=== PATIENT | male | born 1945 | race Caucasian/White ===

== ENCOUNTER 2017-09-06 23:14 | Emergency (ER) | payer MEDICARE ==
[~2017-09-06] VITALS: Ht 180.3 cm; Wt 91.6 kg
[~2017-09-06 23:14] MED LIST: ACET325 PO; ALBIPROI INH; ALBU.083IS IH; ALBU.083IS INH; ALBU90OI61 INH; AMOCLA875 PO; ASPI325EC PO; ATOR10 PO; ATOR80 PO; Advil200 M1 PO; CEFU250 PO; CEPH500 PO; CIPR500 PO; CLON.1 PO; CLOP75 PO; CODGUAEL PO; CYCL10; CYCL10 PO; Cardura Xl8 MG PO; DIAZ5 PO; DILT240 PO; DIPATR PO; DOC250 PO; DOCU100 PO; DOXA2 PO; DOXA4 PO; ENABLEX PO; FAMO20 PO; FLEC50 PO; FLUSAL1005 IH; FLUSAL2505 IH; FURO20 PO; GABA300 PO; GABA300T24; GRALISE600 MG PO; HYDACE5 PO; HYDACE5325 PO; HYDCHL25; HYDCHL25 PO; HYDMOR2 PO; HYDMOR4 PO; HYDR-86; HYDR-86 PO; HYDR1TAB94 PO; IBUP400 PO; LEVFLO500 PO; LISI5 PO; LORA1 PO; MELA3 PO; METH10 PO; METHADONE; METO10 PO; METO25 PO; METO50 PO; METO50ER PO; METR500 PO; METRIBP PO; MOM PO; MORP60ER PO; NADO40; NIFE30ER; NITR100CA PO; Norvasc5 MG PO; OMEP20ER; OMEP20ER PO; ONDA4ODT MM; OXYACE7.5T PO; OXYC30 PO; OXYC30ER PO; OXYC40ER PO; OXYC5; OXYC5 PO; OXYC80ER PO; Omeprazole20 M1; Omeprazole20 M1 PO; PHENA100 PO; POTA10T PO; POTCHL10ER PO; PRED10 PO; PRED20 PO; PRED5 PO; PROCODE120 PO; PROM25 PO; Percocet 10-321 EACH PO; RXCODGUASY PO; RXHYDACE PO; RXLORA1 PO; RXPROM25 PO; SIMV10 PO; STOOL SOFTNER; SUCR1 PO; SULTRIDS PO; SULTRISS PO; TAMS.4ER; TAMS.4ER PO; Tylenol325 MG PO; WARF5 PO; ZOLP5 PO; Zofran Odt4 MG SL; [UNRECOGNIZED DRUG - OTHER] TOP
[2017-09-06] MEDS ORDERED: [UNRECOGNIZED DRUG - OTHER] PO (23:30)
[2017-09-06 23:51] LABS: BASOPHILS ABSOLUTE AUTO 0.05 K/mm3 (0.00-0.23); BASOPHILS PERCENT AUTO 1 % (0-2); EOSINOPHILS ABSOLUTE AUTO 0.11 K/mm3 (0.00-0.68); EOSINOPHILS PERCENT AUTO 1 % (0-6); Hematocrit 40.5 % (37.0-53.0); Hemoglobin 13.2 g/dL (13.5-17.5); IMMATURE GRAN ABSOLUTE AUTO 0.02 K/mm3 (0.00-0.10); IMMATURE GRAN PERCENT AUTO 0 % (0-1); LYMPHOCYTES ABSOLUTE AUTO 1.71 K/mm3 (0.84-5.20); LYMPHOCYTES PERCENT AUTO 21 % (21-46); MONOCYTES ABSOLUTE AUTO 0.69 K/mm3 (0.16-1.47); MONOCYTES PERCENT AUTO 8 % (4-13); Mean Corpuscular HGB 30.9 pg (26.0-34.0); Mean Corpuscular HGB Conc 32.6 g/dL (31.5-36.5); Mean Corpuscular Volume 95 fL (80-100); Mean Platelet Volume 9.8 fL (9.1-12.4); NEUTROPHILS ABSOLUTE AUTO 5.71 K/mm3 (1.96-9.15); NEUTROPHILS PERCENT AUTO 69 % (41-73); NRBC ABSOLUTE 0.02 K/mm3 (0.00-0.02); NRBC Auto 0.2 /100 WBC (0.0-0.2); Platelet Count 217 K/mm3 (150-400); RDW Coefficient Variation 13.4 % (11.7-14.2); RDW Standard Deviation 46.6 fL (35.1-46.3); Red Blood Cell Count 4.27 M/mm3 (4.30-5.90); White Blood Cell Count 8.29 K/mm3 (4.00-11.30)
[2017-09-07 00:09] LABS: Alanine Aminotransfer (ALT/SGP 20 U/L (12-78); Albumin, Blood 3.8 g/dL (3.4-5.0); Albumin/Globulin Ratio 1.2 (0.8-1.8); Alk Phos 69 U/L (50-136); Anion Gap 8 mmol/L (6-16); Aspartate Aminotrans (AST/SGOT 16 U/L (12-37); Bilirubin, Total 0.4 mg/dL (0.1-1.0); Blood Urea Nitrogen 16 mg/dL (8-24); Bun/Creatinine Ratio 16.7 (12.0-20.0); CO2, Blood 28 mmol/L (21-32); Calcium, Blood 8.7 mg/dL (8.5-10.1); Chloride, Blood 103 mmol/L (98-108); Creatinine, Blood 0.96 mg/dL (0.60-1.20); Globulin, Blood 3.2 g/dL (2.2-4.0); Glomerular Filtration Rate >60 (60-); Glucose, Blood 99 mg/dL (70-99); Potassium, Blood 4.1 mmol/L (3.5-5.5); Sodium, Blood 139 mmol/L (136-145); Troponin I <0.015 ng/mL (0.000-0.040)
[2017-09-21] MEDS ORDERED: HYDR1TAB94 PO ×2 (01:26→01:31)
[2017-09-24] MEDS ORDERED: BENZ100A PO (10:54)
[2017-09-24] MEDS ORDERED: PRED20 PO (11:00)
[2018-03-21] MEDS ORDERED: PRED10 PO (15:19)
[2018-03-21] MEDS ORDERED: NITR.6SL SL (15:19)
[2018-03-21] MEDS ORDERED: SUCR1 PO (15:20)
[2018-03-21] MEDS ORDERED: DOXA4 PO (15:20)
[2018-03-21] MEDS ORDERED: Norco 10-325 T1 EACH PO (15:20)
[2018-03-21] MEDS ORDERED: CYCL10 PO (15:21)
[2018-03-22] MEDS ORDERED: Thera Tears1 EACH BOTHEYES (06:48)
[2018-03-22] MEDS ORDERED: PAIN RELIEVING TD (06:49)
[2018-03-22] MEDS ORDERED: METO50 PO (09:30)
== END 2017-09-07 03:38 | disposition home or self-care (01) ==
LOC: ER 23:14
PROVIDERS: Emergency Medicine
DX: R07.9 Chest pain, unspecified (principal); Z79.899 Other long term (current) drug therapy; Z79.82 Long term (current) use of aspirin; Z79.52 Long term (current) use of systemic steroids; I50.9 Heart failure, unspecified
CPT/HCPCS: 36415; 71046; 80053; 83690; 84484; 85025; 93005; 93010; 99283; J7030

== ENCOUNTER 2017-09-20 21:43 | Inpatient (IN) | END 2017-09-24 11:25 | disposition home or self-care (01) | DRG 196 ==

== ENCOUNTER 2018-03-12 21:39 | Emergency (ER) | payer MEDICARE ==
[~2018-03-12] VITALS: Ht 180.3 cm; Wt 88.5 kg
[~2018-03-12 21:39] MED LIST changes: +BENZ100A PO; +[UNRECOGNIZED DRUG - OTHER] PO
[2018-03-12] MEDS ORDERED: LISI5 PO (22:23)
[2018-03-12] MEDS ORDERED: PRED10 PO (22:24)
[2018-03-12] MEDS ORDERED: Cardura8 MG PO (22:24)
[2018-03-12 22:56] LABS: BASOPHILS ABSOLUTE AUTO 0.03 K/mm3 (0.00-0.23); BASOPHILS PERCENT AUTO 0 % (0-2); EOSINOPHILS PERCENT AUTO 1 % (0-6); Hematocrit 37.5 % (37.0-53.0); Hemoglobin 12.3 g/dL (13.5-17.5); IMMATURE GRAN ABSOLUTE AUTO 0.02 K/mm3 (0.00-0.10); IMMATURE GRAN PERCENT AUTO 0 % (0-1); LYMPHOCYTES ABSOLUTE AUTO 1.76 K/mm3 (0.84-5.20); LYMPHOCYTES PERCENT AUTO 21 % (21-46); MONOCYTES ABSOLUTE AUTO 0.61 K/mm3 (0.16-1.47); MONOCYTES PERCENT AUTO 7 % (4-13); Mean Corpuscular HGB 31.6 pg (26.0-34.0); Mean Corpuscular HGB Conc 32.8 g/dL (31.5-36.5); Mean Corpuscular Volume 96 fL (80-100); Mean Platelet Volume 9.9 fL (9.1-12.4); NEUTROPHILS ABSOLUTE AUTO 5.72 K/mm3 (1.96-9.15); NEUTROPHILS PERCENT AUTO 69 % (41-73); Platelet Count 181 K/mm3 (150-400); RDW Coefficient Variation 13.2 % (11.7-14.2); RDW Standard Deviation 46.7 fL (35.1-46.3); Red Blood Cell Count 3.89 M/mm3 (4.30-5.90); White Blood Cell Count 8.24 K/mm3 (4.00-11.30)
[2018-03-12 23:15] LABS: Alanine Aminotransfer (ALT/SGP 17 U/L (12-78); Albumin, Blood 3.6 g/dL (3.4-5.0); Albumin/Globulin Ratio 1.3 (0.8-1.8); Alk Phos 46 U/L (50-136); Anion Gap 10 mmol/L (6-16); Aspartate Aminotrans (AST/SGOT 12 U/L (12-37); Bilirubin, Total 0.4 mg/dL (0.1-1.0); Blood Urea Nitrogen 18 mg/dL (8-24); Bun/Creatinine Ratio 17.5 (12.0-20.0); CO2, Blood 26 mmol/L (21-32); Calcium, Blood 8.3 mg/dL (8.5-10.1); Chloride, Blood 108 mmol/L (98-108); Creatinine, Blood 1.03 mg/dL (0.60-1.20); Globulin, Blood 2.7 g/dL (2.2-4.0); Glomerular Filtration Rate >60 (60-); Glucose, Blood 88 mg/dL (70-99); Potassium, Blood 3.7 mmol/L (3.5-5.5); Sodium, Blood 144 mmol/L (136-145); Total Protein, Blood 6.3 g/dL (6.4-8.2); Troponin I <0.015 ng/mL (0.000-0.040)
[2018-03-13] MEDS ORDERED: LIVALO4 MG PO (17:37)
[2018-03-13] MEDS ORDERED: Doxazosin Mesyla8 MG PO (17:37)
== END 2018-03-13 00:30 | disposition home or self-care (01) ==
LOC: ER 21:39
PROVIDERS: Emergency Medicine
DX: I50.9 Heart failure, unspecified (principal); J98.01 Acute bronchospasm; Z79.899 Other long term (current) drug therapy; Z79.82 Long term (current) use of aspirin; Z79.52 Long term (current) use of systemic steroids; Z79.01 Long term (current) use of anticoagulants
CPT/HCPCS: 36415; 71046; 80053; 83880; 84484; 85025; 93005; 93010; 94640; 96374; 99285-25; J2930

== ENCOUNTER 2018-03-13 16:11 | Emergency (ER) | payer MEDICARE ==
[~2018-03-13] VITALS: Ht 180.3 cm; Wt 88.5 kg
[~2018-03-13 16:11] MED LIST changes: +Cardura8 MG PO
[2018-03-13 16:58] LABS: BASOPHILS PERCENT AUTO 0 % (0-2); EOSINOPHILS PERCENT AUTO 0 % (0-6); Hematocrit 39.8 % (37.0-53.0); Hemoglobin 13.2 g/dL (13.5-17.5); IMMATURE GRAN ABSOLUTE AUTO 0.04 K/mm3 (0.00-0.10); IMMATURE GRAN PERCENT AUTO 1 % (0-1); LYMPHOCYTES ABSOLUTE AUTO 0.54 K/mm3 (0.84-5.20); LYMPHOCYTES PERCENT AUTO 7 % (21-46); MONOCYTES ABSOLUTE AUTO 0.24 K/mm3 (0.16-1.47); MONOCYTES PERCENT AUTO 3 % (4-13); Mean Corpuscular HGB 30.6 pg (26.0-34.0); Mean Corpuscular HGB Conc 33.2 g/dL (31.5-36.5); Mean Platelet Volume 10.2 fL (9.1-12.4); NEUTROPHILS ABSOLUTE AUTO 7.03 K/mm3 (1.96-9.15); NEUTROPHILS PERCENT AUTO 90 % (41-73); Platelet Count 207 K/mm3 (150-400); RDW Coefficient Variation 13.2 % (11.7-14.2); RDW Standard Deviation 44.7 fL (35.1-46.3); Red Blood Cell Count 4.32 M/mm3 (4.30-5.90); White Blood Cell Count 7.85 K/mm3 (4.00-11.30)
[2018-03-13 17:04] LABS: Mean Corpuscular Volume 92 fL (80-100)
[2018-03-13 17:28] LABS: Alanine Aminotransfer (ALT/SGP 20 U/L (12-78); Albumin, Blood 4.1 g/dL (3.4-5.0); Albumin/Globulin Ratio 1.4 (0.8-1.8); Alk Phos 48 U/L (50-136); Anion Gap 11 mmol/L (6-16); Aspartate Aminotrans (AST/SGOT 13 U/L (12-37); Bilirubin, Total 0.9 mg/dL (0.1-1.0); Blood Urea Nitrogen 20 mg/dL (8-24); Bun/Creatinine Ratio 23.3 (12.0-20.0); CO2, Blood 24 mmol/L (21-32); Calcium, Blood 9.2 mg/dL (8.5-10.1); Chloride, Blood 103 mmol/L (98-108); Creatinine, Blood 0.86 mg/dL (0.60-1.20); Globulin, Blood 2.9 g/dL (2.2-4.0); Glomerular Filtration Rate >60 (60-); Glucose, Blood 126 mg/dL (70-99); Potassium, Blood 3.7 mmol/L (3.5-5.5); Sodium, Blood 138 mmol/L (136-145); Troponin I <0.015 ng/mL (0.000-0.040)
[2018-03-13] MEDS ORDERED: LIVALO4 MG PO (17:37)
[2018-03-13] MEDS ORDERED: Doxazosin Mesyla8 MG PO (17:37)
== END 2018-03-13 20:09 | disposition home or self-care (01) ==
LOC: ER 16:11
PROVIDERS: Internal Medicine
DX: R00.2 Palpitations (principal); R53.83 Other fatigue; Z45.018 Encounter for adjustment and management of other part of cardiac pacemaker; Z79.82 Long term (current) use of aspirin; Z79.899 Other long term (current) drug therapy; I50.9 Heart failure, unspecified
CPT/HCPCS: 36415; 80053; 83880; 84484; 85025; 93005; 93010; 99285-25

== ENCOUNTER 2018-03-25 17:50 | Emergency (ER) | payer MEDICARE ==
[~2018-03-25] VITALS: Ht 180.3 cm; Wt 88.5 kg
[~2018-03-25 17:50] MED LIST changes: +Doxazosin Mesyla8 MG PO; +LIVALO4 MG PO; +NITR.6SL SL; +Norco 10-325 T1 EACH PO; +PAIN RELIEVING TD; +Thera Tears1 EACH BOTHEYES
[2018-03-25] MEDS ORDERED: [UNRECOGNIZED DRUG - OTHER] (18:25)
[2018-03-25] MEDS ORDERED: METO50 PO (18:43)
== END 2018-03-25 18:55 | disposition home or self-care (01) ==
LOC: ER 17:50
DX: L25.8 Unspecified contact dermatitis due to other agents (principal); I50.9 Heart failure, unspecified; Z79.899 Other long term (current) drug therapy; Z79.52 Long term (current) use of systemic steroids
CPT/HCPCS: 99282

== ENCOUNTER → 2018-10-05 | Outpatient (CLI) | payer MEDICARE ==
[~2018-10-05] MED LIST changes: +[UNRECOGNIZED DRUG - OTHER]
== END | disposition home or self-care (01) ==
LOC: LAB SHORT 10:02 → PLD 10:02
DX: D48.5 Neoplasm of uncertain behavior of skin (principal)
CPT/HCPCS: 88305

== ENCOUNTER → 2018-10-19 | Outpatient (CLI) | payer MEDICARE | END | disposition home or self-care (01) | LOC: PLD 09:55 → LAB SHORT 09:55 | DX: H61.001 Unspecified perichondritis of right external ear (principal) | CPT/HCPCS: 88305 ==

== ENCOUNTER → 2018-10-30 | Outpatient (CLI) | payer MEDICARE | END | disposition home or self-care (01) | LOC: LAB SHORT 10:58 → PLD 10:58 | DX: D48.5 Neoplasm of uncertain behavior of skin (principal) | CPT/HCPCS: 88305 ==

== ENCOUNTER → 2018-12-14 | Outpatient (CLI) | payer MEDICARE | END | disposition home or self-care (01) | LOC: LAB SHORT 07:45 → PLD 07:45 | DX: H61.001 Unspecified perichondritis of right external ear (principal) | CPT/HCPCS: 88305 ==

== ENCOUNTER 2019-04-04 23:48 | Emergency (ER) | payer MEDICARE ==
[~2019-04-04] VITALS: Ht 180.3 cm; Wt 89.8 kg
[2019-04-05] MEDS ORDERED: Robaxin-750750 MG PO (00:34)
[2019-04-05 01:03] LABS: Source, Urine Catheter
[2019-04-05 01:06] LABS: Bilirubin, Urine Neg (Neg); Blood, Urine 2+ (Neg); Glucose Qualitative, Urine Neg (Neg); Ketones, Urine 1+ (Neg); Leukocyte Esterase, Urine 1+ (Neg); Nitrite, Urine Neg (Neg); Protein, Urine 1+ (Neg); Urobilinogen, Urine NORM (Normal)
[2019-04-05 01:10] LABS: Appearance, Urine Clear (Clear); Color, Urine Yellow (P-Yellow)
[2019-04-05 01:13] LABS: Bacteria Few /hpf; Mucus Light ({null, 0-Heavy}); Squamous Epithelial Cells Not Seen /hpf (Few)
== END 2019-04-05 01:11 | disposition home or self-care (01) ==
LOC: ER 23:48
PROVIDERS: Emergency Medicine
DX: R33.9 Retention of urine, unspecified (principal); Z79.899 Other long term (current) drug therapy; Z79.891 Long term (current) use of opiate analgesic; I50.9 Heart failure, unspecified
CPT/HCPCS: 51702; 81001; 87086; 99283

== ENCOUNTER 2019-04-15 00:53 | Inpatient (IN) | payer MEDICARE ==
[~2019-04-15] VITALS: Ht 180.3 cm; Wt 88.5 kg
[~2019-04-15 00:53] MED LIST changes: +Robaxin-750750 MG PO
[2019-04-15 01:57] LABS: BASOPHILS ABSOLUTE AUTO 0.04 K/mm3 (0.00-0.23); BASOPHILS PERCENT AUTO 0 % (0-2); EOSINOPHILS ABSOLUTE AUTO 0.07 K/mm3 (0.00-0.68); EOSINOPHILS PERCENT AUTO 0 % (0-6); Hematocrit 30.7 % (37.0-53.0); IMMATURE GRAN ABSOLUTE AUTO 0.11 K/mm3 (0.00-0.10); IMMATURE GRAN PERCENT AUTO 1 % (0-1); LYMPHOCYTES ABSOLUTE AUTO 1.61 K/mm3 (0.84-5.20); LYMPHOCYTES PERCENT AUTO 9 % (21-46); MONOCYTES PERCENT AUTO 8 % (4-13); Mean Corpuscular HGB 31.6 pg (26.0-34.0); Mean Corpuscular HGB Conc 32.6 g/dL (31.5-36.5); Mean Corpuscular Volume 97 fL (80-100); Mean Platelet Volume 10.4 fL (9.1-12.4); NEUTROPHILS PERCENT AUTO 82 % (41-73); Platelet Count 318 K/mm3 (150-400); RDW Coefficient Variation 13.2 % (11.7-14.2); RDW Standard Deviation 47.8 fL (35.1-46.3); Red Blood Cell Count 3.16 M/mm3 (4.30-5.90); White Blood Cell Count 18.63 K/mm3 (4.00-11.30)
[2019-04-15 02:10] LABS: Alanine Aminotransfer (ALT/SGP 18 U/L (12-78); Albumin, Blood 2.7 g/dL (3.4-5.0); Alk Phos 102 U/L (50-136); Anion Gap 6 mmol/L (6-16); Aspartate Aminotrans (AST/SGOT 12 U/L (12-37); Bilirubin, Total 0.6 mg/dL (0.1-1.0); Blood Urea Nitrogen 14 mg/dL (8-24); Bun/Creatinine Ratio 14.1 (12.0-20.0); CO2, Blood 26 mmol/L (21-32); Calcium, Blood 7.7 mg/dL (8.5-10.1); Chloride, Blood 107 mmol/L (98-108); Creatinine, Blood 0.99 mg/dL (0.60-1.20); Globulin, Blood 2.8 g/dL (2.2-4.0); Glomerular Filtration Rate >60 (60-); Glucose, Blood 111 mg/dL (70-99); Potassium, Blood 3.9 mmol/L (3.5-5.5); Sodium, Blood 139 mmol/L (136-145); Total Protein, Blood 5.5 g/dL (6.4-8.2)
[2019-04-15 02:17] LABS: Source, Urine Catheter
[2019-04-15 02:28] LABS: Blood, Urine 5+ (Neg); Glucose Qualitative, Urine Neg (Neg); Ketones, Urine Neg (Neg); Leukocyte Esterase, Urine 1+ (Neg); Nitrite, Urine Pos (Neg); Protein, Urine Neg (Neg); Specific Gravity, Urine 1.005 (1.003-1.022); Urobilinogen, Urine 2+ (Normal)
[2019-04-15 02:38] LABS: Appearance, Urine Clear (Clear); Bilirubin, Urine 2+ (Neg); Color, Urine Orange (P-Yellow)
[2019-04-15 02:44] LABS: Bacteria Rare /hpf; Red Blood Cells, Urine 0-2 /hpf (0-2); Squamous Epithelial Cells Rare /hpf (Few); White Blood Cells, Urine 0-2 /hpf (0-5)
[2019-04-15] MEDS ORDERED: Aspir 8181 MG (03:45)
[2019-04-15] MEDS ORDERED: METO25 (03:45)
[2019-04-15] MEDS ORDERED: CIPR500 (03:46)
[2019-04-15 06:12] LABS: BASOPHILS ABSOLUTE AUTO 0.03 K/mm3 (0.00-0.23); BASOPHILS PERCENT AUTO 0 % (0-2); EOSINOPHILS PERCENT AUTO 1 % (0-6); Hematocrit 33.6 % (37.0-53.0); Hemoglobin 10.6 g/dL (13.5-17.5); IMMATURE GRAN ABSOLUTE AUTO 0.05 K/mm3 (0.00-0.10); IMMATURE GRAN PERCENT AUTO 0 % (0-1); LYMPHOCYTES PERCENT AUTO 10 % (21-46); MONOCYTES ABSOLUTE AUTO 1.07 K/mm3 (0.16-1.47); MONOCYTES PERCENT AUTO 6 % (4-13); Mean Corpuscular HGB Conc 31.5 g/dL (31.5-36.5); Mean Corpuscular Volume 98 fL (80-100); Mean Platelet Volume 9.7 fL (9.1-12.4); NEUTROPHILS ABSOLUTE AUTO 13.68 K/mm3 (1.96-9.15); NEUTROPHILS PERCENT AUTO 82 % (41-73); Platelet Count 333 K/mm3 (150-400); RDW Coefficient Variation 13.3 % (11.7-14.2); RDW Standard Deviation 47.8 fL (35.1-46.3); Red Blood Cell Count 3.42 M/mm3 (4.30-5.90); White Blood Cell Count 16.63 K/mm3 (4.00-11.30)
[2019-04-15] MEDS ORDERED: Oxycodone HCl20 M1 PO (06:16)
[2019-04-15] MEDS ORDERED: OXYC10TA19 PO (11:05)
--- NOTE | 2019-04-15 17:41 | NUR ---
SHIFT SUMMARY: PT IS A/O X 4 THIS SHIFT WITH C/O CHRONIC BACK PAIN. DR RODRIGUEZ WAS NOTIFIED AND GAVE AN ORDER REFLECTED ON SEP. PT STATES PAIN MEDS ARE EFFECTIVE. INCISION TO BACK WAS CLEANSED AND A DRY DRESSING WAS APPLIED PER DR RODRIGUEZ. EDGES ARE CLOSED AND WELL APPROX WITH NO REDNESS, SWELLING OR HEAT NOTED TO SITE. PT HAS SLEPT MOST OF THE DAY UNTIL ARRIVED TO VISIT. PT IS ABLE TO MAKE HIS NEEDS KNOWN AND CALLS FOR HELP WHEN NEEDED.
[2019-04-16 05:13] LABS: BASOPHILS ABSOLUTE AUTO 0.05 K/mm3 (0.00-0.23); BASOPHILS PERCENT AUTO 0 % (0-2); EOSINOPHILS ABSOLUTE AUTO 0.16 K/mm3 (0.00-0.68); EOSINOPHILS PERCENT AUTO 1 % (0-6); Hematocrit 32.3 % (37.0-53.0); Hemoglobin 10.3 g/dL (13.5-17.5); IMMATURE GRAN ABSOLUTE AUTO 0.08 K/mm3 (0.00-0.10); IMMATURE GRAN PERCENT AUTO 1 % (0-1); LYMPHOCYTES ABSOLUTE AUTO 1.09 K/mm3 (0.84-5.20); LYMPHOCYTES PERCENT AUTO 8 % (21-46); MONOCYTES ABSOLUTE AUTO 0.95 K/mm3 (0.16-1.47); MONOCYTES PERCENT AUTO 7 % (4-13); Mean Corpuscular HGB 30.7 pg (26.0-34.0); Mean Corpuscular HGB Conc 31.9 g/dL (31.5-36.5); Mean Corpuscular Volume 96 fL (80-100); Mean Platelet Volume 10.1 fL (9.1-12.4); NEUTROPHILS ABSOLUTE AUTO 12.24 K/mm3 (1.96-9.15); NEUTROPHILS PERCENT AUTO 84 % (41-73); Platelet Count 300 K/mm3 (150-400); RDW Coefficient Variation 13.2 % (11.7-14.2); RDW Standard Deviation 46.9 fL (35.1-46.3); Red Blood Cell Count 3.35 M/mm3 (4.30-5.90); White Blood Cell Count 14.57 K/mm3 (4.00-11.30)
[2019-04-16 05:32] LABS: Albumin, Blood 2.7 g/dL (3.4-5.0); Anion Gap 6 mmol/L (6-16); Blood Urea Nitrogen 12 mg/dL (8-24); Bun/Creatinine Ratio 14.2 (12.0-20.0); CO2, Blood 25 mmol/L (21-32); Calcium, Blood 8.5 mg/dL (8.5-10.1); Chloride, Blood 107 mmol/L (98-108); Creatinine, Blood 0.85 mg/dL (0.60-1.20); Glomerular Filtration Rate >60 (60-); Glucose, Blood 93 mg/dL (70-99); Phosphorus, Blood 2.3 mg/dL (2.5-4.9); Sodium, Blood 138 mmol/L (136-145)
--- NOTE | 2019-04-16 06:12 | NUR ---
NO ASSESSMENT CHANGES. DENIES SOB. BACK INCISION DRESSING IS C/D/I. OXYCODONE GIVEN @ 2100, 0100, AND 0515. PINEDA STILL DRAINING ORANGE TINGED URINE.
--- NOTE | 2019-04-16 17:41 | NUR ---
SHIFT SUMMARY: PT IS A/O X 4 AT BASELINE THIS SHIFT WITH ONGOING C/O CHRONINC BACK PAIN. PRN MEDS WERE GIVEN ORDERED. INCISION TO LOW BACK REMAINS WELL APPROX AND HEALING WELL, DRESSING WAS CHANGED AND IS CDI. PINEDA IS PATENT WITH CLEAR ORANGE/YELLOW URINE OUTPUT. PT CALLS FOR HELP WHEN NEEDED.
[2019-04-17] MEDS ORDERED: Robaxin750 MG (03:41)
--- NOTE | 2019-04-17 04:13 | NUR ---
DR Smith updated on PT's CO unrelieved back pain on 10 mg oxycodone Q 4 hours around the clock. PT says he has been on oxycodone 20 mg preop lumbar surgery on 03/29/19 and postop. CO 9/10 pain and insomnia. Administering oxycodone 10 mg with tylenol also tried. DR Smith oks use of oxycodone 20 mg Q 4 hours PRn severe pain. Yeung cath patent drains clear yellow urine, culture shows no growth currently. Continues on antibiotic.
[2019-04-17 05:29] LABS: BASOPHILS ABSOLUTE AUTO 0.04 K/mm3 (0.00-0.23); BASOPHILS PERCENT AUTO 0 % (0-2); EOSINOPHILS PERCENT AUTO 2 % (0-6); Hematocrit 32.9 % (37.0-53.0); Hemoglobin 10.5 g/dL (13.5-17.5); IMMATURE GRAN ABSOLUTE AUTO 0.04 K/mm3 (0.00-0.10); IMMATURE GRAN PERCENT AUTO 0 % (0-1); LYMPHOCYTES ABSOLUTE AUTO 1.29 K/mm3 (0.84-5.20); LYMPHOCYTES PERCENT AUTO 13 % (21-46); MONOCYTES ABSOLUTE AUTO 0.68 K/mm3 (0.16-1.47); MONOCYTES PERCENT AUTO 7 % (4-13); Mean Corpuscular HGB 30.4 pg (26.0-34.0); Mean Corpuscular HGB Conc 31.9 g/dL (31.5-36.5); Mean Corpuscular Volume 95 fL (80-100); Mean Platelet Volume 9.9 fL (9.1-12.4); NEUTROPHILS ABSOLUTE AUTO 7.58 K/mm3 (1.96-9.15); NEUTROPHILS PERCENT AUTO 77 % (41-73); Platelet Count 319 K/mm3 (150-400); RDW Standard Deviation 45.6 fL (35.1-46.3); Red Blood Cell Count 3.45 M/mm3 (4.30-5.90); White Blood Cell Count 9.83 K/mm3 (4.00-11.30)
[2019-04-17 05:54] LABS: Albumin, Blood 2.6 g/dL (3.4-5.0); Anion Gap 6 mmol/L (6-16); Blood Urea Nitrogen 12 mg/dL (8-24); Bun/Creatinine Ratio 14.4 (12.0-20.0); CO2, Blood 27 mmol/L (21-32); Calcium, Blood 8.7 mg/dL (8.5-10.1); Chloride, Blood 105 mmol/L (98-108); Creatinine, Blood 0.83 mg/dL (0.60-1.20); Glomerular Filtration Rate >60 (60-); Glucose, Blood 90 mg/dL (70-99); Phosphorus, Blood 3.4 mg/dL (2.5-4.9); Sodium, Blood 138 mmol/L (136-145)
--- NOTE | 2019-04-17 13:01 | NUR ---
SHIFT SUMMARY PT AWAKE DURING SHIFT REPORT, RESTING QUIETLY IN BED. PLEASANT AND CO-OP. ADMITTED FOR UROSEPSIS. PER REPORT, PT HAD RECENT SPINE SX ON L3 & L4 AND WAS HAVING DIFFICULTY BEING ABLE TO VOID WHEN SENT HOME. PT INSTRUCTED TO STRAIGHT CATH AT HOME D/T BPH AND URINE RETENSION THEN DEVELOPED INFECTION. PINEDA CATH PLACED IN ER D/T PT BEING UNABLE TO VOID. PT TO BE D/C'D WITH PINEDA CATH IN PLACE AND TO F/U WITH UROLOGY PER HIS PCP. PT MEDICATED X1, PER EMAR, FOR C/O PAIN TO BACK. PT REPORTED THAT IT TOOK A WHILE TO TAKE EFFECT, BUT WAS EFFECTIVE. DR RODRIGUEZ HERE TO SEE PT; D/C ORDERS PLACED. PT TO D/C TO HOME WITH H/H. MEDS FAXED TO [facility], PER PT REQUEST. F/U APPT MADE TO SEE DR WALTER. PT PROVIDED WITH EDU AND VERBALIZED UNDERSTANDING. PT DECLINED LEG BAG FOR PINEDA TO GO HOME WITH. STAT LOCK CHANGED PER PT REQUEST. 1215 ESC[facility] HERE TO TAKE PT, VIA W/C, DOWN TO WAITING WITH CAR.
== END 2019-04-17 12:10 | disposition home health service (06) | DRG 698 ==
LOC: ER 00:53 → MEDS 05:19
PROVIDERS: Emergency Medicine; Internal Medicine; ADMIT Hospitalist
DX: T83.511A Infection and inflammatory reaction due to indwelling urethral catheter, initial encounter (principal); A41.9 Sepsis, unspecified organism; N39.0 Urinary tract infection, site not specified; N40.1 Benign prostatic hyperplasia with lower urinary tract symptoms; R33.8 Other retention of urine; I25.10 Atherosclerotic heart disease of native coronary artery without angina pectoris; I10 Essential (primary) hypertension; D86.9 Sarcoidosis, unspecified; R31.0 Gross hematuria; E83.39 Other disorders of phosphorus metabolism; Z95.0 Presence of cardiac pacemaker; Z95.5 Presence of coronary angioplasty implant and graft; Z79.02 Long term (current) use of antithrombotics/antiplatelets; Z79.82 Long term (current) use of aspirin; Z79.52 Long term (current) use of systemic steroids; Z79.899 Other long term (current) drug therapy
CPT/HCPCS: 36415; 51702; 71045; 80053; 80069; 81001; 82947; 83605; 83735; 84145; 85025; 87040; 87086; 99284; A9270; J0696; J2270; J7030; J7050; J7512

== ENCOUNTER → 2019-05-24 | Outpatient (CLI) | payer MEDICARE ==
[~2019-05-24] MED LIST changes: +Aspir 8181 MG; +CIPR500; +METO25; +OXYC10TA19 PO; +Oxycodone HCl20 M1 PO; +Robaxin750 MG
== END | disposition home or self-care (01) ==
LOC: LAB 17:40 → LAB SHORT 17:40
DX: T81.31XA Disruption of external operation (surgical) wound, not elsewhere classified, initial encounter (principal)
CPT/HCPCS: 87070; 87075; 87205

== ENCOUNTER → 2019-07-03 | Outpatient (CLI) | payer MEDICARE | END | disposition home or self-care (01) | LOC: LAB SHORT 09:28 → PLD 09:28 | DX: H61.001 Unspecified perichondritis of right external ear (principal) | CPT/HCPCS: 88305 ==

== ENCOUNTER → 2019-08-20 | Outpatient (CLI) | payer MEDICARE | END | disposition home or self-care (01) | LOC: LAB SHORT 08:28 → PLD 08:28 | DX: D48.5 Neoplasm of uncertain behavior of skin (principal) | CPT/HCPCS: 88305 ==

== ENCOUNTER → 2020-08-12 | Outpatient (CLI) | payer MEDICARE ==
[2020-08-12 16:06] LABS: U Amphetamine Screen Not Detected; U Barbituate Screen Not Detected; U Benzodiazapine Screen Not Detected; U Buprenorphine Screen Not Detected; U Cannabinoids Screen Not Detected; U Cocaine Screen Not Detected; U Methadone Screen Not Detected; U Methamphetamine Screen Not Detected; U Opiates Screen Not Detected; U Oxycodone Screen DETECTED; U Phencyclidine Screen Not Detected; U Propoxyphene Screen Not Detected
== END | disposition home or self-care (01) ==
LOC: LAB SHORT 12:20 → LAB 12:20
PROVIDERS: Family Medicine
DX: Z51.81 Encounter for therapeutic drug level monitoring (principal); Z79.899 Other long term (current) drug therapy
CPT/HCPCS: G0480

== ENCOUNTER 2021-10-23 15:54 | Inpatient (IN) | payer MEDICARE ==
[~2021-10-23] VITALS: Ht 180.3 cm; Wt 91.9 kg
[2021-10-23 16:21] LABS: Hematocrit 36.8 % (37.0-53.0); Mean Corpuscular HGB 32.3 pg (26.0-34.0); Mean Corpuscular HGB Conc 32.6 g/dL (31.5-36.5); Mean Corpuscular Volume 99 fL (80-100); Mean Platelet Volume 10.2 fL (9.1-12.4); NRBC ABSOLUTE 0.05 K/mm3 (0.00-0.02); NRBC Auto 2.1 /100 WBC (0.0-0.2); Platelet Count 132 K/mm3 (150-400); RDW Coefficient Variation 15.7 % (11.7-14.2); RDW Standard Deviation 56.9 fL (35.1-46.3); Red Blood Cell Count 3.72 M/mm3 (4.30-5.90); White Blood Cell Count 2.33 K/mm3 (4.00-11.30)
[2021-10-23 16:41] LABS: Albumin/Globulin Ratio 1.1 (0.8-1.8); Bilirubin, Total 1.5 mg/dL (0.1-1.0); Bun/Creatinine Ratio 15.9 (12.0-20.0); Calcium, Blood 8.4 mg/dL (8.5-10.1); Creatinine, Blood 1.64 mg/dL (0.60-1.20); Globulin, Blood 2.7 g/dL (2.2-4.0); Magnesium, Blood 1.4 mg/dL (1.6-2.4); Potassium, Blood 3.3 mmol/L (3.5-5.5); Total Protein, Blood 5.7 g/dL (6.4-8.2)
[2021-10-23 16:59] LABS: BASOPHILS PERCENT MAN 0 % (0-2); EOSINOPHILS ABSOLUTE MAN 0.02 K/mm3 (0.00-0.68); EOSINOPHILS PERCENT MAN 1 % (0-6); LYMPHOCYTES PERCENT MAN 13 % (21-46); MONOCYTES ABSOLUTE MAN 0.06 K/mm3 (0.16-1.47); MONOCYTES PERCENT MAN 3 % (4-13); MYELOCYTE ABSOLUTE MAN 0.06 K/mm3 (0.00-0.00); MYELOCYTE PERCENT MAN 3 % (0-0); NEUTROPHILS ABSOLUTE MAN 1.86 K/mm3 (1.96-9.15); SEG NEUTROPHILS PERCENT MAN 80 % (41-73); TOTAL CELLS COUNTED 100
[2021-10-23 18:03] LABS: Source, Urine Voided
[2021-10-23 18:10] LABS: Blood, Urine 1+ (Neg); Glucose Qualitative, Urine Neg (Neg); Ketones, Urine Neg (Neg); Leukocyte Esterase, Urine 1+ (Neg); Nitrite, Urine Pos (Neg); Protein, Urine 3+ (Neg); Specific Gravity, Urine 1.025 (1.003-1.022); Urobilinogen, Urine NORM (Normal)
[2021-10-23 18:12] LABS: Appearance, Urine Hazy (Clear); Bilirubin, Urine 3+ (Neg); Color, Urine Amber (P-Yellow)
[2021-10-23 18:14] LABS: Amorphous Light (0-Heavy); Bacteria Many /hpf; Hyaline Casts 0-2 /lpf (0-2); Mucus Light (0-Heavy); Squamous Epithelial Cells Few /hpf (Few)
[2021-10-23 18:15] LABS: Granular Casts Not Seen /lpf (0); Spermatozoa Rare /hpf
[2021-10-23 18:41] LABS: Creatine Kinase MB 3.7 ng/mL (0.0-3.6); Creatine Kinase MB Index 0.6 (0.0-4.0)
[2021-10-23] MEDS ORDERED: FURO20 PO (23:05)
[2021-10-23 23:21] LABS: Source, Urine Foley catheter
[2021-10-23] MEDS ORDERED: CRAN-MAX500 MG PO (23:23)
[2021-10-23 23:24] LABS: Blood, Urine 1+ (Neg); Glucose Qualitative, Urine Neg (Neg); Ketones, Urine Neg (Neg); Leukocyte Esterase, Urine Neg (Neg); Nitrite, Urine Neg (Neg); Protein, Urine 2+ (Neg); Specific Gravity, Urine 1.025 (1.003-1.022); Urobilinogen, Urine NORM (Normal)
[2021-10-23 23:27] LABS: Appearance, Urine Hazy (Clear); Bilirubin, Urine 2+ (Neg); Color, Urine Orange (P-Yellow)
[2021-10-23 23:29] LABS: Bacteria Mod /hpf; Red Blood Cells, Urine Rare /hpf (0-2); Squamous Epithelial Cells Not Seen /hpf (Few); White Blood Cells, Urine 0-2 /hpf (0-5)
[2021-10-24 04:23] LABS: Bun/Creatinine Ratio 14.1 (12.0-20.0); Calcium, Blood 7.6 mg/dL (8.5-10.1); Creatinine, Blood 2.06 mg/dL (0.60-1.20); Potassium, Blood 4.7 mmol/L (3.5-5.5)
[2021-10-24 04:47] LABS: Hematocrit 32.3 % (37.0-53.0); Hemoglobin 10.3 g/dL (13.5-17.5); Mean Corpuscular HGB 31.6 pg (26.0-34.0); Mean Corpuscular HGB Conc 31.9 g/dL (31.5-36.5); Mean Corpuscular Volume 99 fL (80-100); Mean Platelet Volume 10.3 fL (9.1-12.4); NRBC ABSOLUTE 0.07 K/mm3 (0.00-0.02); NRBC Auto 2.6 /100 WBC (0.0-0.2); Platelet Count 115 K/mm3 (150-400); RDW Coefficient Variation 15.9 % (11.7-14.2); Red Blood Cell Count 3.26 M/mm3 (4.30-5.90); White Blood Cell Count 2.68 K/mm3 (4.00-11.30)
--- NOTE | 2021-10-24 06:25 | NUR ---
SHIFT SUMMARY RECIEVED REPORT FROM CHRISTIAN CID, PATIENT TO ROOM FROM ED AT APPROX 2210, SLID FROM STRETCHER TO THE BED. PATIENT IS ALERT AND ORIENTED UPON ARRIVAL TO THE UNIT. PATIENT IS ANXIOUS AND EASILY AGITATED, DIFFICULT TO REDIRECT AND UNRECEPTIVE TO TEACHING. PINEDA INSERTED. CALLED HOSPITALIST TO ADD HOME MEDS TO EMAR AND CLARIFY FLUID ORDERS. 1L BOLUS OF LR GIVEN AND A CONTINUOUS INF OF LR FOR 1 DAY AT 125 MLS/HR STARTED. 02 SATS 93% ON RA, PATIENT DENIES SOB, LS CLEAR TO DIMINISHED. HR A.FIB 90s-120s. BP STABLE DURING AND SHORTLY AFTER FLUID BOLUS. PAIN MEDICATION GIVEN FOR BACK AND RLE PAIN. PATIENT BECAME MORE HYPOTENSIVE, CALLED HOSPITALIST AND ORDER FOR LEVOPHED (SEE EMAR AND FLOW SHEET FOR TIMES). LEVOPHED CURRENTLY AT 10 MCG/MIN. PATIENT BECOMING MORE AND MORE AGITATED PULLING THE SUCTION OF THE CHAVES AND ATTEMPTING TO CONSTANTLY GET OUT OF BED. PATIENT UP TO TOILET, UNABLE TO REDIRECT OR GET HIM TO USE BEDPAN. ORDERS FOR PRECEDEX, HAD TO STOP PRECEDEX D/T LOW BP. 02 SATS 88% ON RA AT TIMES, PATIENT REFUSES TO LET ME PUT OXYGEN ON HIM. PATIENT LEAKING AROUND PINEDA CATHETER, MINIMAL OUTPUT IN CATHETER, PATIENT STATES DISCOMFORT, UNABLE TO GET PINEDA TO DRAIN PROPERLY, DC'd. MAG LOW IN AM LABS, CALLED HOSPITALIST WHO WILL PUT IN ORDERS. PATIENT ABLE TO REPOSITION SELF IN BED, CONSTANTLY TURNING SIDE TO SIDE. PICTURES OF WOUNDS AND RLE IN CHART.
--- NOTE | 2021-10-24 07:13 | NUR ---
PATIENT REMAINS ALERT AND ORIENTED X4, SPEECH HAS BECOME MORE NONSENSICLE AND PATIENT RAMBLES NON STOP. STILL DIFFICULT TO REDIRECT AND REFUSING CARE SUCH OXYGEN.
--- NOTE | 2021-10-24 08:00 | NUR ---
AM NOTE.... ASSUMED CARE OF PT AT 0700, THE PT WAS ADMITTED FOR SEPSIS AND CELLULITIS. THE PT IS ON LEVOPHED RUNNING AT 10MCG/MIN WITH MAPS >60. THE PT IS ABLE TO STATE HIS NAME, , THE MONTH AND THE YEAR BUT WITH OTHER QUESTIONS THE PT IS NONSENSICAL OR CONFUSED. THE PT IS ON RA WITH O2 SATS >94% L/S CLEAR T/O, RR IN THE 20'S. THE PT IS IN AFIB IN THE 100'S-130'S THE PT HAS 2+ PITTING EDEMA TO HIS LLE, THE PT'S RLE IS BRIGHT RED, HOT AND VERY SWOLLEN, THE RLE IS VERY PAINFUL TO TOUCH. THE PT IS VERY SENSITIVE TO ANY PAIN PER THE PT'S . BT PRESENT AND HYPERACTIVE, ABD IS DISTENDED AND FIRM TO PALPATION BUT NOT TENDER. A PINEDA CATH PLACED FOR STRICT I'S AND O'S THE PT'S URINE IS A KITCHEN RED IN COLOR. WILL CONTINUE TO MONITOR.
[2021-10-24 08:36] LABS: Base Excess Venous -5.7 mmol/L; Bicarbonate Venous 19.9 mmol/L (24.0-30.0); PCO2 Venous 44.1 mmHg (38-42); PO2 Venous 128 mmHg (38-42); pH Blood Venous 7.29 (7.34-7.37)
[2021-10-24 12:59] LABS: Source, Urine Foley catheter
[2021-10-24 13:06] LABS: Blood, Urine 5+ (Neg); Glucose Qualitative, Urine Neg (Neg); Ketones, Urine Neg (Neg); Leukocyte Esterase, Urine Neg (Neg); Nitrite, Urine Pos (Neg); Protein, Urine 3+ (Neg); Urobilinogen, Urine 1+ (Normal)
[2021-10-24 13:22] LABS: Appearance, Urine Hazy (Clear); Bilirubin, Urine 2+ (Neg); Color, Urine Amber (P-Yellow)
[2021-10-24 13:23] LABS: White Blood Cells, Urine 0-2 /hpf (0-5)
[2021-10-24 13:24] LABS: Bacteria Many /hpf; Red Blood Cells, Urine 50-100 /hpf (0-2); Squamous Epithelial Cells Rare /hpf (Few)
[2021-10-24 15:27] LABS: Bun/Creatinine Ratio 12.3 (12.0-20.0); Calcium, Blood 7.4 mg/dL (8.5-10.1); Creatinine, Blood 2.6 mg/dL (0.60-1.20)
--- NOTE | 2021-10-24 15:29 | NUR ---
PT UPDATE..... THE PT CONTINUES TO BECOME MORE CONFUSED T/O THIS SHIFT PULLING ON LINES AND WIRES AND ATTEMPTING TO CLIMB OUT OF BED, THE PT HAS BEEN AGRESSIVE AND COMBATIVE TOWARDS STAFF AT TIMES. THE PT'S WORK OF BREATHING HAS INCREASED FROM EARLIER ASSESSMENT WITH SLIGHT WHEEZES NOTED, THE PT WAS PLACED ON A NC STARTING AT 2L AND THIS HAS BEEN TITRATED UP TO 4L T/O THIS SHIFT. THE PT'S TMAX WAS 101.3 CURRENTLY HIS TEMP IS 100.6. THE PT'S LEVOPHED HAS BEEN INCREASED TO 14MCG/MIN AND VASOPRESSIN AT 0.04UNITS/HR TO KEEP MAPS >60. THE PT'S WAS AT THE BEDSIDE FOR A FEW HOURS AND CONSENT WAS OBTAINED FOR A PICC LINE, THIS WAS PLACED WITH OUT ISSUE. ORTHO SURGEON CAME TO SEE THE PT D/T THE CELLULITIS AND POSSIBLE COMPARTMENT SYNDROME TO THE RIGHT LEG, THE PT WAS TAKEN TO CT SCAN AND BROUGHT BACK TO THE ROOM WITHOUT ISSUE. WILL CONTINUE TO MONITOR.
[2021-10-24 15:53] LABS: Base Excess Venous -7.4 mmol/L; Bicarbonate Venous 18.4 mmol/L (24.0-30.0); PCO2 Venous 49.1 mmHg (38-42); pH Blood Venous 7.22 (7.34-7.37)
--- NOTE | 2021-10-24 18:46 | NUR ---
SHIFT SUMMARY.... THE RED AREA ON THE PT'S RIGHT LEG GREW UP THE BACK OF THE PT'S RIGHT THIGH, THE PT'S WORK OF BREATHING AND MENTAL STATUS ALSO STARTED TO DECLINE. NOTIFIED. DR. MARTINS ASSESSED THE PT'S RIGHT LEG AND NOTIFIED DR. BARFIELD. BOTH PROVIDERS AT THE BEDSIDE TO ASSESS THE PT DECIDED A RIGHT AKA WOULD BE NEEDED. THE PT'S WAS CALLED AND CAME TO THE ROOM, SHE AGREED WITH THE PLAN TO TAKE THE PT' TO SURGERY, REMOVE THE RIGHT LEG AND BRING THE PT BACK ON THE VENT. THE PT'S LEVOPHED IS AT 22MCG/MIN, VASOPRESSIN 0.04UNITS/HR AND AN EPI DRIP READY IF NEEDED. THE PT IS ON 4L NC WITH O2 SATS >90%. PT LEFT FOR THE OR AT 1855.
[2021-10-24 18:55] LABS: Influenza A, PCR NEGATIVE (NEGATIVE); Influenza B, PCR NEGATIVE (NEGATIVE); Resp Syncytial Virus, PCR NEGATIVE (NEGATIVE); SARS-Cov-2 (COVID-19) PCR, MMC NEGATIVE (NEGATIVE)
--- NOTE | 2021-10-24 20:01 | NUR ---
10/24/212000 Jamal Moser PT ON SCHEDULED ANTIBIOTICS. NO SCD ON NON OP LEG PER MD DUE TO WOUNDS PRESENT. PT TO OR WITH PINEDA PRESENT. APPROX <50CC. OF CLEAR ORANGE URINE PRESENT. IV SITE ESTABLISHED IN LEFT WRIST 18G BY DR. CROFT WITH CHLOROPREP PREP AND WINDOW DRESSING. PT TOLERATED WELL WHILE INTUBATED. PT NOTED TO HAVE SKIN TEAR ON LEFT FOREARM.
--- NOTE | 2021-10-24 20:01 | NUR ---
RECIEVED REPORT FROM MOHIT CID, PATIENT CURRENTLY IN SURGERY.
--- NOTE | 2021-10-25 01:23 | NUR ---
PATIENT TO ROOM FROM OR POST RLE AKA AT 2049. BEDSIDE REPORT DONE. PACU MONITORING DONE AT 2149, PATIENT THEN TRANSFERRED TO ICU STATUS. PATIENT IS INTUBATED ON VENT WITH SETTING AC VC 16/500/5/100%, LS CLEAR 02 SATS 100%. BP STABLE UPON ARRIVAL WITH LEVOPHED INF AT 16 MCG/MIN AND VASO, PATIENT BECAME HYPOTENSIVE SHORTLY AFTER ARRIVING. LEVO TITRATED UP TO 23 MCG/MIN AND EPI STARTED WITH MAP IN THE 50s. PATIENT ABLE TO NOD YES TO PAIN AND WAS MEDICATED PER EMAR. DR. JOSEPH TO PATIENT BEDSIDE TO ADDRESS WOUND VAC LEAK. ATTEMPTED TO REINFORCE, LEAK STILL PRESENT. DRESSING CURRENTLY C/D/I. DR. MARTINS UPDATED ON PATIENT CONDITION AND HE SPOKE TO THE PATIENT OVER THE PHONE WHILE SHE WAS AT [facility]. PATIENT CHANGED TO DNR STATUS. CHEST X-RAY COMPLETED AND ETT PLACEMENT CONFIRMED. PATIENT SEDATED ON PROPOFOL DUE TO COUGHING AND AGITATION. OG TUBE PLACED, LIS WITH YELLOW BILE. EPI IS CURRENTLY ON SB, LEVO AND VASO STILL INF. PINEDA IS DRAINING ORANGE URINE TO GRAVITY. LUE WOUNDS BANDAGED AND PHOTOS IN CHART. PATIENT REPOSITONED Q2 HOURS AND ORAL CARE DONE Q4 HOURS.
[2021-10-25 03:19] LABS: Base Excess Venous -2.1 mmol/L; Bicarbonate Venous 22.5 mmol/L (24.0-30.0); PCO2 Venous 40.3 mmHg (38-42); PO2 Venous 41.5 mmHg (38-42); pH Blood Venous 7.37 (7.34-7.37)
[2021-10-25 03:31] LABS: Hematocrit 30.1 % (37.0-53.0); Hemoglobin 9.9 g/dL (13.5-17.5); Mean Corpuscular HGB 32.6 pg (26.0-34.0); Mean Corpuscular HGB Conc 32.9 g/dL (31.5-36.5); Mean Corpuscular Volume 99 fL (80-100); Mean Platelet Volume 10.5 fL (9.1-12.4); NRBC ABSOLUTE 0.07 K/mm3 (0.00-0.02); NRBC Auto 0.7 /100 WBC (0.0-0.2); Platelet Count 106 K/mm3 (150-400); RDW Coefficient Variation 16.3 % (11.7-14.2); RDW Standard Deviation 58.4 fL (35.1-46.3); Red Blood Cell Count 3.04 M/mm3 (4.30-5.90); White Blood Cell Count 9.94 K/mm3 (4.00-11.30)
[2021-10-25 03:50] LABS: Alanine Aminotransfer (ALT/SGP 18 U/L (12-78); Albumin, Blood 2.1 g/dL (3.4-5.0); Albumin/Globulin Ratio 0.8 (0.8-1.8); Alk Phos 55 U/L (50-136); Anion Gap 11 mmol/L (6-16); Aspartate Aminotrans (AST/SGOT 55 U/L (12-37); Blood Urea Nitrogen 34 mg/dL (8-24); Bun/Creatinine Ratio 17.6 (12.0-20.0); CO2, Blood 24 mmol/L (21-32); Calcium, Blood 7.2 mg/dL (8.5-10.1); Chloride, Blood 98 mmol/L (98-108); Creatinine, Blood 1.93 mg/dL (0.60-1.20); Globulin, Blood 2.6 g/dL (2.2-4.0); Glomerular Filtration Rate 34 (60-); Glucose, Blood 144 mg/dL (70-99); Magnesium, Blood 1.5 mg/dL (1.6-2.4); Phosphorus, Blood 4.1 mg/dL (2.5-4.9); Potassium, Blood 4.8 mmol/L (3.5-5.5); Sodium, Blood 133 mmol/L (136-145); Total Protein, Blood 4.7 g/dL (6.4-8.2); Vancomycin, Random 11.8 ug/mL
[2021-10-25 03:54] LABS: BAND PERCENT MAN 43 % (0-8); BASOPHILS PERCENT MAN 0 % (0-2); EOSINOPHILS PERCENT MAN 0 % (0-6); LYMPHOCYTES ABSOLUTE MAN 0.29 K/mm3 (0.84-5.20); LYMPHOCYTES PERCENT MAN 3 % (21-46); METAMYELOCYTE ABSOLUTE MAN 0.29 K/mm3 (0.00-0.00); METAMYELOCYTE PERCENT MAN 3 % (0-0); MONOCYTES ABSOLUTE MAN 0.39 K/mm3 (0.16-1.47); MONOCYTES PERCENT MAN 4 % (4-13); MYELOCYTE ABSOLUTE MAN 0.19 K/mm3 (0.00-0.00); MYELOCYTE PERCENT MAN 2 % (0-0); NEUTROPHILS ABSOLUTE MAN 8.74 K/mm3 (1.96-9.15); SEG NEUTROPHILS PERCENT MAN 45 % (41-73); TOTAL CELLS COUNTED 100
--- NOTE | 2021-10-25 05:15 | NUR ---
SHIFT SUMMARY PATIENT IS INTUBATED AND SEDATED ON PROPOFOL. PULLS AT RESTRAINTS OCCASIONALLY AND ABLE TO NOD YES/NO TO QUESTIONS. MOVING UPPER EXTREMETIES AND LLE. 02 SATS 100% ON VENT, AC VC 16/500/5/60% RR 16, TITRATING FI02 DOWN THROUGH THE NIGHT. LS CLEAR TO DIMINISHED IN THE BASES. HR A. FIB @80s-90s. BP WITH MAP >65 ON LEVOPHED AND VASO, ABLE TO TURN OFF EPI AND CURRENTLY TITRATING LEVO DOWN NOW AT 15 MCG/MIN. DOPPLER PULSE FOR LLE. ATTEMPTED TO REINFORCE AND MINIMIZE LEAK TO WOUND VAC FOR RIGHT AKA, UNABLE TO PREVENT LEAK, DR. CENTENO. DRESSING C/D/I. MEDICATED FOR PAIN PER EMAR. PINEDA DRAINING TO GRAVITY, ORANGE OUTPUT, 350 THIS SHIFT. REPLACING MAG NOW. PATIENT REPOSITIONED Q2 HOURS. OG REMAINS TO LIS WITH YELLOW BILE.
--- NOTE | 2021-10-25 08:04 | NUR ---
AM NOTE... ASSUMED CARE OF PT AT 0700, THE PT IS INTUBATED AND SEDATED WITH VENT SETTINGS AT AC/VC 16/500/5/55% WITH O2 SATS >90% L/S TIGHT WHEEZES T/O. NO SECRETIONS NOTED DURING ET SUCTION. THE PT RESPONDS TO PAINFUL STIMULI AND DOES NOT LIKE ORAL CARE HE WILL BITE THE SUCTION SWABS. WHILE BEING STIMULIATED THE PT IS ABLE TO NOD HIS HEAD "YES" AND "NO" TO SIMPLE QUESTIONS. OG TUBE PRESENT AND SET TO LIS WITH YELLOW BILE PRESENT IN THE TUBE. BOWEL TONES ARE VERY HYPOACTIVE, ABD IS DISTENDED BUT SOFT TO PALPATION. THE PT'S RIGHT AKA HAS A WOUND VAC DRESSING, THERE IS A LEAK IN THE WOUND VAC BUT THERE IS SEROSANGUINOUS FLUID IN THE WOUND VAC CONTAINER. THE PT'S LLE HAS 2+ EDEMA NOTED AND PULSES BY DOPPLER ONLY. THE PT'S PINEDA IS PATENT AND DRAINING TO GRAVITY. THE PT'S LEVOPHED DRIP IS RUNNING AT 10MCG/MIN, VASO AT 0.04UNITS/HR, BICARB DRIP IS RUNNING AT 100MLS/HR AND PROPOFOL IS AT 15MCG/KG. WILL CONTINUE TO MONITOR.
--- NOTE | 2021-10-25 11:13 | NUR ---
PT UPDATE.... AT 1036 THE PT'S O2 SATS DROPPED FROM THE HIGH 90'S DOWN TO 85% THEN DROPPED DOWN TO 77% AND THE ETCO2 DROPPED FROM 22 TO 16. THERE WERE NO CHANGES TO THE PT'S HR/RHYTHM, MEDS OR THE PT DURING THIS TIME. THIS RN TURNED THE FIO2 UP TO 100% BUT THE PT'S O2 SATS DID NOT IMPROVE. DR. DILLARD WAS CALLED TO THE BEDSIDE, WHILE DR. DILLARD WAS ON THE WAY THIS RN SUCTIONED THE PT AND THE O2 SATS IMPROVED UP TO >90% THERE WERE NO SECRETIONS SUCTIONED DURING THIS TIME. DR. DILLARD LEVAGED THE PT AND WAS ABLE TO SUCTION A SMALL AMOUNT OF THICK WHITE SECRETIONS. WILL CONTINUE TO MONITOR.
[2021-10-25 13:25] LABS: Base Excess Venous 0.4 mmol/L; Bicarbonate Venous 24.6 mmol/L (24.0-30.0); PCO2 Venous 42.6 mmHg (38-42); PO2 Venous 60.4 mmHg (38-42); pH Blood Venous 7.38 (7.34-7.37)
[2021-10-25 13:33] LABS: Magnesium, Blood 1.7 mg/dL (1.6-2.4); Potassium, Blood 4.2 mmol/L (3.5-5.5)
--- NOTE | 2021-10-25 17:50 | NUR ---
SHIFT SUMMARY.... NO ACUTE NEGATIVE CHANGES NOTED SINCE PREVIOUS NOTES. THE LEVOPHED HAS BEEN TITRATED DOWN TO 6MCG/MIN AND THE VASOPRESSIN HAS BEEN OFF SINCE APROX 1700 AND THE PT'S MAPS HAVE BEEN >65. THE PT'S PROPOFOL WAS INCREASED TO 35MCG/KG TO KEEP THE PT FROM CHEWING THE TUBE AND COOPERATING WITH CARE. THE PT'S WOUND VAC IS RUNNING WELL AND THE LEAK HAS BEEN STOPPED. THE PT'S PINEDA IS PATENT AND DRAINING TO GRAVITY. THE PT HAS NOT HAD A BM THIS SHIFT. THE PT'S SKIN IS VERY FRAGILE AND TEARS EASILY, THE PT ALREADY HAS SEVERAL SKIN TEARS TO THE LEFT ARM, THESE WERE DRESSED AND THE LEFT ARM COVERED WITH KIRLEX TO HELP PREVENT FURTHER SKIN TEARS. THE PT'S WAS UPDATED BY THE PROVIDER. WILL CONTINUE TO MONITOR UNTIL REPORT IS GIVEN TO ONCOMING RN.
[2021-10-26 03:39] LABS: Hemoglobin 8.8 g/dL (13.5-17.5); Mean Corpuscular HGB 32.1 pg (26.0-34.0); Mean Corpuscular HGB Conc 33.8 g/dL (31.5-36.5); Mean Corpuscular Volume 95 fL (80-100); Mean Platelet Volume 11.3 fL (9.1-12.4); NRBC ABSOLUTE 0.18 K/mm3 (0.00-0.02); NRBC Auto 1.9 /100 WBC (0.0-0.2); Platelet Count 87 K/mm3 (150-400); RDW Standard Deviation 54.7 fL (35.1-46.3); Red Blood Cell Count 2.74 M/mm3 (4.30-5.90); White Blood Cell Count 9.37 K/mm3 (4.00-11.30)
[2021-10-26 04:01] LABS: Alanine Aminotransfer (ALT/SGP 12 U/L (12-78); Albumin, Blood 1.9 g/dL (3.4-5.0); Albumin/Globulin Ratio 0.7 (0.8-1.8); Alk Phos 59 U/L (50-136); Anion Gap 7 mmol/L (6-16); Aspartate Aminotrans (AST/SGOT 36 U/L (12-37); Bilirubin, Total 0.9 mg/dL (0.1-1.0); Blood Urea Nitrogen 37 mg/dL (8-24); Bun/Creatinine Ratio 25.5 (12.0-20.0); CO2, Blood 30 mmol/L (21-32); Calcium, Blood 7.4 mg/dL (8.5-10.1); Chloride, Blood 96 mmol/L (98-108); Creatinine, Blood 1.45 mg/dL (0.60-1.20); Globulin, Blood 2.6 g/dL (2.2-4.0); Glomerular Filtration Rate 47 (60-); Glucose, Blood 125 mg/dL (70-99); Magnesium, Blood 2.1 mg/dL (1.6-2.4); Phosphorus, Blood 2.4 mg/dL (2.5-4.9); Potassium, Blood 3.7 mmol/L (3.5-5.5); Sodium, Blood 133 mmol/L (136-145); Total Protein, Blood 4.5 g/dL (6.4-8.2); Vancomycin, Random 15.9 ug/mL
[2021-10-26 05:27] LABS: BAND PERCENT MAN 21 % (0-8); BASOPHILS PERCENT MAN 0 % (0-2); EOSINOPHILS PERCENT MAN 0 % (0-6); LYMPHOCYTES ABSOLUTE MAN 0.09 K/mm3 (0.84-5.20); LYMPHOCYTES PERCENT MAN 1 % (21-46); MONOCYTES ABSOLUTE MAN 0.46 K/mm3 (0.16-1.47); MONOCYTES PERCENT MAN 5 % (4-13); SEG NEUTROPHILS PERCENT MAN 73 % (41-73); TOTAL CELLS COUNTED 100
--- NOTE | 2021-10-26 06:36 | NUR ---
Patient per assessment. Remains intubated and sedated through the night. Levophed weaned to off early in shift, MAP maintained greater than 65. Consistently tachycardic 100-130's, worse with any stimulation. Wound vac in place over right AKA site. This morning propofol weaned to off for spont. breathing trial; pt tolerated well, sedation left off for remainder of shift. Pt alert, following commands. Restless but denies pain. became febrile at 0600, tylenol administered, ogt clamped. Bilateral soft wrist restraints remain in place for medical director/head team physician protection and patient safety
--- NOTE | 2021-10-26 08:30 | NUR ---
INITIAL ASSESSMENT PATIENT INTUBATED AND ON SEDATION. PATIENT RESPONDS TO VERBAL STIMULI. PATIENT AGITATED AND TRYING TO MOUTH WORDS TO RN. PATIENT IS NOT MOVING EXTREMITIES. PATIENT GIVEN PRN PAIN MED. PATIENT HAS CORE TEMP OF 100.0 DEGREES FAHRENHEIT. PATIENT ON ACVC 16, TV 500, PEEP 5 AND 35% FIO2. LUNGS CLEAR IN UPPER LOBES; DIMINISHED IN LOWER LOBES. WHEEZE NOTED TO R LOWER LOBE. SCANT AMOUNT OF THICK, YELLOW SPUTUM SUCTIONED FROM ETT. PATIENT IN A. FIB. PATIENT DOES HAVE PACEMAKER NOTED TO CHEST. HR 120S TO 140S. SBP 150S TO 180S. 2+ EDEMA NOTED TO EXTREMITIES. ABDOMEN DISTENDED, SOFT, WITH HYPOACTIVE BOWEL SOUNDS NOTED. NO NUTRITION INFUSING. MOM GIVEN NO DOCUMENTED BM SINCE ADMIT TO HOSPITAL 3 DAYS AGO. OG TO LIS; BEING CLAMPED AFTER MEDS. TEMP PINEDA DRAINING ORANGE COLORED URINE WITH SEDIMENT NOTED. PENIS AND SCROTUM EDEMATOUS. FACE FLUSHED AND DIAPHORETIC. SKIN BRUISED, FRAGILE, BLISTERY, WEEPY AND OOZING. MULTIPLE SKIN TEARS NOTED. NUMEROUS MEPILEX IN PLACE. R AKA; WOUND VAC IN PLACE DRAINING SEROSANGUINEOUS FLUID. SODIUM BICARB INFUSING AT 100 MLS/ HOUR, NS TKO, PROPOFOL AT 45 MCG/ KG/ MINUTE. BED LOW, CALL LIGHT IN REACH. WILL CONTINUE TO MONITOR PATIENT FREQUENTLY THROUGHOUT SHIFT.
--- NOTE | 2021-10-26 11:19 | NUR ---
DR. SALAZAR UPDATED ON PATIENT STATUS. INFORMED THAT PLATELETS AT 87 AND ARE CONTINUING TO TREND DOWN. INFORMED THAT PATIENT ON ASPIRIN EC AND THAT IT CAN NOT BE CRUSHED TO GO DOWN THE OG TUBE. INFORMED THAT PATIENT NOT ON TF. INFORMED THAT PATIENT'S ABDOMEN DISTENDED, WITH HYPOACTIVE BOWEL SOUNDS NOTED. INFORMED THAT PATIENT HAS NOT HAD BM FOR 3 DAYS AND THAT PRN MOM GIVEN THIS AM. INFORMED THAT HR UP TO 130S EVEN WHEN SEDATED. STATED HE WOULD PLACE ORDERS.
--- NOTE | 2021-10-26 12:40 | NUR ---
PATIENT HAS TEMP OF 100.1 DEGREES FAHRENHEIT. PATIENT ON PRECEDEX AT 0.3 MCG/ KG/ HOUR AND PROPOFOL AT 10 MCG/ KG/ MINUTE. PRECEDEX DECREASED FOR HYPOTENSION. SBP 70S TO 80S. HR 90S TO LOW 100S. LLL DIMINISHED. ALL OTHER LUNG LOBES CLEAR. PATIENT HAS GROSS MOVEMENTS TO ALL EXTREMITIES. BLOOD SUGAR 109; NO COVERAGE INDICATED. CAME TO VISIT THIS AM. NO SIGNS OF PAIN NOTED AT THIS TIME. WILL CONTINUE TO MONITOR.
--- NOTE | 2021-10-26 16:00 | NUR ---
PATIENT AFEBRILE. HR 90S TO LOW 100S. SBP IN THE LOW 100S. TFS STARTED. MEPILEX' ON L ARM CHANGED WERE SOAKED WITH SEROSANGUINEOUS FLUID. NO OTHER ACUTE CHANGES TO NOTE ON AT THIS TIME. WILL CONTINUE TO MONITOR.
--- NOTE | 2021-10-26 19:09 | NUR ---
SHIFT SUMMARY PATIENT REMAINED INTUBATED AND ON SEDATION. PRECEDEX AT 0.3 MCG/ KG/ HOUR AND PROPOFOL AT 10 MCG/ KG/ MINUTE. PATIENT BECOMES HYPOTENSIVE WHEN PRECEDEX OVER 0.3. PATIENT AGITATED WHEN AWAKE. PATIENT LOCALIZING MOVEMENTS. PATIENT HAD TMAX OF 100.2 DEGREES FAHRENHEIT. PATIENT AFEBRILE AT THIS TIME. PATIENT GIVEN PRN FENTANYL OT THIS SHIFT FOR SIGNS OF PAIN. PATIENT REMAINED ON AC 16, TV 500, PEEP 5 AND 35% FIO2. PATIENT REMAINED IN A. FIB, HR 80S TO 140S. SBP 70S TO 180S. PATIENT REMAINS EDEMATOUS. NO BM THIS SHIFT. PRN MOM GIVEN THIS AM. VHP TF STARTED THIS SHIFT AT 25 MLS/ HOUR WITH GOAL OF 40 MLS PER HOUR. 30 ML WATER FLUSH Q4H. PINEDA DRAINED 690 MLS OF ORANGE COLORED URINE WITH SEDIMENT NOTED. NO CHANGES TO SKIN NOTED. PATIENT REPOSITIONED Q2H. MEPILEX' TO L ARM CHANGED THIS AFTERNOON SOAKED WITH SEROSANGUINEOUS FLUID. BICARB INFUSING AT 100 MLS/ HOUR, NS TKO. PATIENT RECEIVED ALBUMIN THIS SHIFT. ECHO PERFORMED THIS SHIFT. BLOOD SUGARS [address] JOSEPH TO CHANGE PATIENT'S DRESSING IN AM. REPORT HAS BEEN GIVEN TO ASSUMING ACCIDENT EXAMINER NURSE.
[2021-10-27 03:38] LABS: BASOPHILS ABSOLUTE AUTO 0.04 K/mm3 (0.00-0.23); BASOPHILS PERCENT AUTO 0 % (0-2); Hematocrit 27.4 % (37.0-53.0); Hemoglobin 9.1 g/dL (13.5-17.5); LYMPHOCYTES ABSOLUTE AUTO 0.29 K/mm3 (0.84-5.20); LYMPHOCYTES PERCENT AUTO 3 % (21-46); MONOCYTES PERCENT AUTO 7 % (4-13); Mean Corpuscular HGB 31.4 pg (26.0-34.0); Mean Corpuscular HGB Conc 33.2 g/dL (31.5-36.5); Mean Corpuscular Volume 95 fL (80-100); Mean Platelet Volume 11.6 fL (9.1-12.4); NRBC ABSOLUTE 0.37 K/mm3 (0.00-0.02); Platelet Count 94 K/mm3 (150-400)
[2021-10-27 03:39] LABS: EOSINOPHILS PERCENT AUTO 0 % (0-6); IMMATURE GRAN ABSOLUTE AUTO 0.09 K/mm3 (0.00-0.10); IMMATURE GRAN PERCENT AUTO 1 % (0-1); NEUTROPHILS ABSOLUTE AUTO 8.18 K/mm3 (1.96-9.15); NEUTROPHILS PERCENT AUTO 89 % (41-73)
[2021-10-27 03:50] LABS: Albumin, Blood 2.2 g/dL (3.4-5.0); Anion Gap 11 mmol/L (6-16); Blood Urea Nitrogen 46 mg/dL (8-24); Bun/Creatinine Ratio 28.2 (12.0-20.0); CO2, Blood 30 mmol/L (21-32); Calcium, Blood 7.3 mg/dL (8.5-10.1); Chloride, Blood 95 mmol/L (98-108); Creatinine, Blood 1.63 mg/dL (0.60-1.20); Glomerular Filtration Rate 41 (60-); Glucose, Blood 150 mg/dL (70-99); Magnesium, Blood 2.5 mg/dL (1.6-2.4); Potassium, Blood 3.4 mmol/L (3.5-5.5); Sodium, Blood 136 mmol/L (136-145); Vancomycin, Random 16.5 ug/mL
--- NOTE | 2021-10-27 05:58 | NUR ---
Shift Summary: Neuro - pt responding to painful stimuli and verbal stimuli. Unable to follow commands but moving all extremities to painful stimuli. Propofol was stopped at 0400 and only on Precedex gtt. PERRLA @ 3. Resp: Remains intubated, scant secretions. Pt switched to Spontenous Mode at 0530 for SBT. Lung sounds are diminished/clear. Cardiac: AFIB with HR 90's. Afebrile. +2 edema on bilateral upper extremities, right stump and left leg. BP stable, SBPs in the low 100s. Doppler pulses on left pedal and right femoral. GI/: Pt tube feeding was stopped at 0400 due to high residuals (275 mL at rate of 20mL/hr). No BM. Yeung in place, urine output orange/tisha with sediments. Integ: Pt very moist and weeping constantly on right stump and bilateral upper extretmities. Redressed wounds on right and left arm x3 overnight. Saturated multiple ABD pads and dry flow pads. Overall skin condition poor and very fragile. 2qh turns. Right AKA still weeping moderately and wound vac canister was changed overnight. Infusions: sodium bicarb, precedex and normal saline
--- NOTE | 2021-10-27 08:00 | NUR ---
INITIAL ASSESSMENT PATIENT COUGHED UP ETT TUBE AT 0738 THIS AM. PATIENT SLEEPING SOUNDLY WHEN FIRST CAME ON SHIFT BUT VERY QUICKLY BECAME EXTREMELY AGITATED. PATIENT WAS ON PRECEDEX AT 0.3 MCG/ KG/ HOUR AT THIS TIME AND WAS INCREASED TO 0.5. RT CALLED AND INFORMED THAT PATIENT WIDE AWAKE IF THEY WOULD LIKE TO DO SPONTANEOUS PRESSURE SUPPORT TRIAL AT THIS TIME. NURSE WENT TO [facility] TO GATHER PAIN MEDICATION AND RT ARRIVED TO PATIENT ROOM SHORT TIME LATER AND ANNOUNCED THAT PATIENT HAD EITHER COUGHED UP ETT OR PUSHED BITE BLOCK TO SIDE AND TONGUED TUBE UP FROM THROAT. PATIENT THEN EXTUBATED THE REST OF THE WAY BY RT. OG ALSO PULLED AT THIS TIME. PATIENT PLACED ON 5 L NC AND REMAINED SATTING 90% AND GREATER. DR. SALAZAR CALLED AND UPDATED ON EVENT AND PATIENT STATUS. PATIENT ANGRY AFTER EXTUBATION AND STATED THAT HE DID NOT WANT "HIS LIFE SAVED". PATIENT STATED THAT HE HAS A PAPER STATING HIS WISHES TO NOT BE RESUSCITATED. PATIENT STATES THAT HE DID NOT AGREE TO HAVE LEG AMPUTATED AND THAT HE DOES NOT WANT TO BE ALIVE. PATIENT STATES THAT HE "IS ALREADY AND HAS BEEN ". PATIENT STATES THAT "THE DRJayna TOLD HIM HE WAS " AND THAT HE "IS ON THE WAY TO BE CREMATED RIGHT NOW". PATIENT INFORMED THAT HE IS ALIVE. PATIENT VERY ANGRY AT THIS STATMENT. PATIENT THEN ASKED ORIENTATION QUESTIONS AND ANSWERS ALL QUESTIONS APPROPRIATELY IMMEDIATELY AFTER "I AM ALREADY COMMENT". PATIENT WEAK BUT ABLE TO MOVE ALL EXTREMITIES. PATIENT HAS TEMP OF 99.8 DEGREES FAHRENHEIT. PATIENT STATES HE IS IN 10/10 ALL OVER PAIN AND THAT HE JUST HAD BACK SURGERY A YEAR AGO. LUNGS CLEAR IN UPPER LOBES AND DIMINISHED IN LOWER LOBES. PATIENT HAS OCCASIONAL, NONPRODUCTIVE COUGH. PATIENT IN A. FIB, HR 90S TO LOW 100S. SBP 90S TO LOW 100S. PATIENT EDEMATOUS ALL OVER. ABDOMEN DISTENDED AND FIRM WITH HYPOACTIVE BOWEL SOUNDS NOTED. NO BM SINCE BEFORE ADMISSION. TEMP PINEDA DRAINING ORANGE COLORED URINE. FACE FLUSHED. SKIN FRAGILE, WEEPY, BLISTERY. MULTIPLE SCATTERED BRUISES AND SKIN TEARS NOTED. R AKA WITH WOUND VAC NOTED. BICARB AT 100 MLS/ HOUR, NS TKO. BED LOW, CALL LIGHT IN REACH. WILL CONTINUE TO MONITOR PATIENT FREQUENTLY THROUGHOUT SHIFT.
--- NOTE | 2021-10-27 08:03 | NUR ---
PATIENT STATES THAT FENTANYL DOES NOT WORK FOR HIS PAIN. PATIENT STATED THAT NOTHING HELPS HIS PAIN EXCEPT OXYCODONE. PATIENT CONTINUES TO REPORT 10/10 PAIN. PATIENT STATES THAT HIS PAIN IS MANAGEABLE AT 10 UNTIL HE CAN TAKE PO OXYCODONE.
--- NOTE | 2021-10-27 08:38 | NUR ---
PATIENT'S , LACI, CALLED AND UPDATED ON PATIENT STATUS. INFORMED THAT PATIENT COUGHED UP TUBE THIS AM. ALSO INFORMED THAT PATIENT ANGRY AND FRUSTRATED THAT "HIS LIFE WAS SAVED". STATED THAT PATIENT CONSENTED TO LEG AMPUTATION AND LIFE SAVING MEASURES. STATED SHE WOULD BE IN AROUND 1100 AND WOULD "DEAL WITH IT THEN".
--- NOTE | 2021-10-27 10:22 | NUR ---
DR. SALAZAR JUST CAME OUT OF ROOM FROM TALKING TO PATIENT. INFORMED THAT TF TURNED OFF LAST NIGHT FOR HIGH RESIDUAL, THAT NO BM SINCE ADMIT, AND THAT PATIENT'S STOMACH FEELS MORE FIRM THAN IT DID YESTERDAY. ORDER RECEIVED.
--- NOTE | 2021-10-27 11:02 | NUR ---
PATIENT WILL ONLY ALLOW TURNING BETWEEN R SIDE AND BACK. PATIENT STATES THAT HE PREFERS R SIDE AFTER HIS BACK SURGERY AND WILL NOT LIE ON HIS LEFT SIDE.
--- NOTE | 2021-10-27 12:30 | NUR ---
PATIENT HAS TEMP OF 100.3 DEGREES FAHRENHEIT. PATIENT LESS ALERT AND ORIENTED THAN WAS THIS AM. PRECEDEX HAS BEEN INCREASED UP TO 1.4 MCG/ KG/ HOUR TO HELP PATIENT TOLERATE BIPAP MASK. BIPAP AT 10/5 AND 30% FIO2. PATIENT ON BIPAP BECAUSE INCREASED WOB AND TACHYPNEA ON NC. SPEECH NOW DIFFICULT TO UNDERSTAND PATIENT IS BARELY WHISPERING AND HAS SOB WITH SPEAKING. HR IN THE 90S. SBP IN THE 90S AND MAP GREATER THAN 65. WILL CONTINUE TO MONITOR.
--- NOTE | 2021-10-27 13:00 | NUR ---
PATIENT'S , BROTHER AND FRIEND LEAVING UNIT. PATIENT'S HAS HAD CONVERSATION WITH PALLIATIVE CARE NURSE AND FAMILY ABOUT PATIENT CODE STATUS. AWARE THAT PATIENT VERY INSISTENT THIS AM THAT HE DOES NOT WANT TO BE REINTUBATED OR HAVE CPR. WOULD LIKE TO CONTINUE DNR STATUS WITH NO REINTUBATION. STATES THAT IF PATIENT BECOMES AGITATED AND GRABBING AT LINES/ CORDS OR THAT HIS O2 REQUIREMENTS ARE INCREASING ON BIPAP, TO CALL HER AND THAT SHE WILL DRIVE IN FROM [place] AND WOULD LIKE TO MAKE PATIENT COMFORTABLE.
--- NOTE | 2021-10-27 15:25 | NUR ---
PATIENT'S CALLED AND INFORMED THAT PATIENT'S WOB HAS INCREASED, THAT PATIENT IS MORE SOB AND THAT HIS BREATHING RATE HAS INCREASED. INFORMED THAT PATIENT NEEDED TO BE PLACED ON BIPAP BUT WAS PLACED IN RESTRAINTS BECAUSE HE WOULD NOT LEAVE BIPAP MASK ON. INFORMED THAT PATIENT AGITATED WITH THE RESTRAINTS. STATED SHE WOULD COME IN FROM [place].
--- NOTE | 2021-10-27 15:32 | NUR ---
CALLED BACK AND INFORMED THAT AFTER PATIENT LEFT ALONE HE WENT TO SLEEP. INFORMED THAT HE IS STILL ON BIPAP AND IN RESTRAINTS BUT THAT HE APPEARS COMFORTABLE AND IS NOT FIGHTING THE RESTRAINTS. STATED THAT SHE WOULD CALL IN A WHILE TO CHECK BACK UP ON PATIENT AND WOULD NOT BE COMING TO TOWN AT THIS TIME.
--- NOTE | 2021-10-27 16:00 | NUR ---
PATIENT SLEEPING ON PRECEDEX AT 1.4 MCG/ KG/ HOUR. PATIENT HAS TEMP OF 101.0 DEGREES FAHRENHEIT. ICE PACKS AND FAN PLACED ON PATIENT. HR 80S TO 90S. SBP IN THE 90S. NO OTHER ACUTE CHANGES TO NOTE ON AT THIS TIME. NO SIGNS OF PAIN OR DISCOMFORT NOTED. WILL CONTINUE TO MONITOR.
--- NOTE | 2021-10-27 17:05 | NUR ---
Review of pt in rounding. pt extubated himslef and after much consideration and conversation with pr and family he has opted for DNR. Careful conversation with about his wiahes and prognsis. She is not happy about his chaoices but understands that he is very distruaght over his prognosis and change in his live. We reviewed what rehab may look like if he makes it through this event. Had a therputic conversation on treating him comprhensively. He is very devoute in his valdez so we will have his sack maker come cnad see him for support. He is shoing significant grief from the loss of his leg. pt high risk for failure to thrive and repeat infections. Will continue to support and help with future plan of care. pt kps score is 30%
--- NOTE | 2021-10-27 18:47 | NUR ---
SHIFT SUMMARY PATIENT PUSHED ETT OUT THIS AM WITH COUGHING AND TONGUE. PATIENT EXTUBATED THE REST OF THE WAY BY RT. PATIENT ALERT AND ORIENTED X 4 THIS AM, HOWEVER STATED "I AM ALREADY ". PRECEDEX HAS SINCE BEEN INCREASED ON PATIENT FOR AGITATION BUT THEN FOR BIPAP COMPLIANCE. PRECEDEX AT 1.4 MCG/ KG/ HOUR AT THIS TIME. PATIENT GIVEN PRN PAIN MEDICATION FOR COMPLAINTS OF PAIN "ALL OVER". PATIENT NOW UNABLE TO MAKE SOUND WHEN TRYING TO TALK. PATIENT BECOMES VERY SOB, TACHYPNEIC AND INCREASED WOB WHEN TRYING TO TALK. PATIENT LASTED ON NC FOR SHORT TIME AND FOR BREAKS AND HAS MOSTLY BEEN ON BIPAP AT 10/5 AND 30% FIO2. PATIENT HAS REMAINED IN A. FIB, HR 80S TO LOW 100S. SBP 90S TO 1-TEENS. NO BM THIS SHIFT. OG PULLED WHEN EXTUBATED. SWALLOW EVAL ORDERED TODAY. PINEDA DRAINED 375 MLS OF ORANGE COLORED URINE. R STUMP AND BILAT ARMS CONTINUED TO OOZE SEROUS DRAINAGE ALL DAY. WOUND VAC DRESSING CHANGED BY NURSE AND DR. JOSEPH TODAY. SODIUM BICARB DC'D THIS SHIFT. ANTIBIOTICS CHANGED UP. PATIENT RECEIVED 20 MEQ KCL FOR POTASSIUM OF 3.4. 80 MG LASIX GIVEN THIS SHIFT. BLOOD SUGARS REMAINED IN THE 130S. REPORT GIVEN TO ASSUMING COMPOUNDER [employer] NURSE.
[2021-10-28 05:08] LABS: BASOPHILS ABSOLUTE AUTO 0.02 K/mm3 (0.00-0.23); BASOPHILS PERCENT AUTO 0 % (0-2); Hematocrit 31.7 % (37.0-53.0); Hemoglobin 10.4 g/dL (13.5-17.5); LYMPHOCYTES ABSOLUTE AUTO 0.67 K/mm3 (0.84-5.20); LYMPHOCYTES PERCENT AUTO 8 % (21-46); MONOCYTES ABSOLUTE AUTO 0.81 K/mm3 (0.16-1.47); MONOCYTES PERCENT AUTO 10 % (4-13); Mean Corpuscular HGB 31.8 pg (26.0-34.0); Mean Corpuscular HGB Conc 32.8 g/dL (31.5-36.5); Mean Corpuscular Volume 97 fL (80-100); Mean Platelet Volume 12.9 fL (9.1-12.4); NRBC ABSOLUTE 0.75 K/mm3 (0.00-0.02); NRBC Auto 8.9 /100 WBC (0.0-0.2); Platelet Count 100 K/mm3 (150-400); RDW Coefficient Variation 16.2 % (11.7-14.2); RDW Standard Deviation 56.9 fL (35.1-46.3); Red Blood Cell Count 3.27 M/mm3 (4.30-5.90); White Blood Cell Count 8.41 K/mm3 (4.00-11.30)
[2021-10-28 05:16] LABS: EOSINOPHILS PERCENT AUTO 0 % (0-6); IMMATURE GRAN ABSOLUTE AUTO 0.44 K/mm3 (0.00-0.10); IMMATURE GRAN PERCENT AUTO 5 % (0-1); NEUTROPHILS ABSOLUTE AUTO 6.47 K/mm3 (1.96-9.15); NEUTROPHILS PERCENT AUTO 77 % (41-73)
[2021-10-28 05:24] LABS: Albumin, Blood 2.2 g/dL (3.4-5.0); Anion Gap 11 mmol/L (6-16); Blood Urea Nitrogen 66 mg/dL (8-24); Bun/Creatinine Ratio 34.9 (12.0-20.0); CO2, Blood 28 mmol/L (21-32); Calcium, Blood 7.7 mg/dL (8.5-10.1); Chloride, Blood 97 mmol/L (98-108); Creatinine, Blood 1.89 mg/dL (0.60-1.20); Glomerular Filtration Rate 35 (60-); Glucose, Blood 143 mg/dL (70-99); Magnesium, Blood 2.7 mg/dL (1.6-2.4); Phosphorus, Blood 4.7 mg/dL (2.5-4.9); Potassium, Blood 4.4 mmol/L (3.5-5.5); Sodium, Blood 136 mmol/L (136-145)
--- NOTE | 2021-10-28 06:21 | NUR ---
Shift Summary: Pt tolerated BiPap overnight with Precedex gtt. In the beginning of shift patient was more agitated and anxious, was trying to formulate words and pull on restraints. Pt was able to nod and gesture appropriately to questions but throughout the night became more confused and drowsy. Pt still responds to painful stimuli on all extremities. BiPap setting remains unchanged from previous shift, 10/5 FiO2 30% and PEEP 5. No cough. Lung sounds are diminished. BP remains stable. Still in AFIB with HR ranging in the 70's. Febrile, gave rectal Acetaminophen, gave cold bath and ice throughout body to bring temperature down. Edematous. No BM. NPO due to self extubation and drowsiness, speech evaluation ordered. Low urine output - tisha and sediments. Catheter remains patent, care done. Skin extremely fragile and weeping. Changed dressings on all wounds 2x, saturated many ABD and dry flow pads. Right AKA weeping and oozing significantly, sanguineous fluid. Wound vac still on at 120 mmHg. q2h turns.
[2021-10-28 07:01] LABS: BAND PERCENT MAN 6 % (0-8); BASOPHILS PERCENT MAN 0 % (0-2); EOSINOPHILS PERCENT MAN 0 % (0-6); LYMPHOCYTES ABSOLUTE MAN 0.42 K/mm3 (0.84-5.20); LYMPHOCYTES PERCENT MAN 5 % (21-46); MONOCYTES ABSOLUTE MAN 0.58 K/mm3 (0.16-1.47); MONOCYTES PERCENT MAN 7 % (4-13); MYELOCYTE ABSOLUTE MAN 0.08 K/mm3 (0.00-0.00); MYELOCYTE PERCENT MAN 1 % (0-0); NEUTROPHILS ABSOLUTE MAN 7.31 K/mm3 (1.96-9.15); SEG NEUTROPHILS PERCENT MAN 81 % (41-73); TOTAL CELLS COUNTED 100
--- NOTE | 2021-10-28 15:13 | NUR ---
WOUND CARE ALL DRESSINGS TO SKIN TEARS AND WEEPING WOUNDS ON BUE'S CHANGED. WOUND VAC DRESSING REMAINS INTACT.
--- NOTE | 2021-10-28 17:27 | NUR ---
SHIFT SUMMARY PT DID WELL THIS SHIFT. PT TAKEN OFF BIPAP THIS AM AND PLACED ON 4L O2 NC. PT HAS REMAINED ON NC AND DONE WELL THROUGHOUT THE SHIFT. PT SPEECH IMPROVED THROUGHOUT THE SHIFT, BUT VOICE REMAINS SOFT. PT IS ALERT, ORIENTED, AND FOLLOWS SOME DIRECTIONS WELL. PT WITH PERIODS OF RESTLESSNESS/AGITATION WITH CARE. PT MED FOR PAIN IN BACK AND RIGHT LE PER EMAR. RIGHT AKA WITH WOUND VAC REMAINS C/D/I. SKIN TEARS AND WEEPING EDEMA TO BUE'S REMAINS UNCHANGED. PICC TO JUDITH C/D/I. PRECEDEX INFUSING AT 0.7 MCG/KG/HR AND NS TKO. VITAL SIGNS REMAIN STABLE. PT SPOUSE VISITED PT THIS AFTERNOON FOR SHORT TIME. WILL CONTINUE TO MONITOR AND REPORT OFF TO ONCOMING RN.
--- NOTE | 2021-10-28 19:34 | NUR ---
ASSUMED CARE OF PATIENT FROM MACHELLE. PT IN BED AWAKE ASKING TO SIT UP FOR DINNER. REMINDED THAT HE IS NOT ALLOWED TO EAT ANYTHING AT THIS TIME. HE HAS BEEN USING THE ORAL SWABS FOR HIS MOUTH. HE ACKNOWLEDGES ME AND GIVES ME A THUMBS UP WHEN SPEAKING TO HIM. HE DID ASK FOR PAIN MEDICATION, HE ASKED THAT HE GET A HYDROCODONE, I EXPLAINED THAT HE IS NOTHING BY MOUTH AND THAT HE WILL GET IV MEDS, HE SAID HE CAN HAVE A HYDROCODONE AND SUCK ON IT. POSITIVE RE- INFORCEMENT GIVEN. PT WITH CLEAR LUNG SOUNDS, SATS >95%, BREATHING IS TACHY AND SLIGHTLY LABORED. STATES THAT HIS PAIN IS IN HIS BACK.
[2021-10-29 04:39] LABS: BASOPHILS ABSOLUTE AUTO 0.01 K/mm3 (0.00-0.23); BASOPHILS PERCENT AUTO 0 % (0-2); EOSINOPHILS PERCENT AUTO 0 % (0-6); Hematocrit 31.3 % (37.0-53.0); IMMATURE GRAN ABSOLUTE AUTO 0.34 K/mm3 (0.00-0.10); IMMATURE GRAN PERCENT AUTO 5 % (0-1); LYMPHOCYTES ABSOLUTE AUTO 0.41 K/mm3 (0.84-5.20); LYMPHOCYTES PERCENT AUTO 6 % (21-46); MONOCYTES ABSOLUTE AUTO 0.52 K/mm3 (0.16-1.47); MONOCYTES PERCENT AUTO 8 % (4-13); Mean Corpuscular HGB 31.4 pg (26.0-34.0); Mean Corpuscular HGB Conc 31.9 g/dL (31.5-36.5); Mean Corpuscular Volume 98 fL (80-100); Mean Platelet Volume 11.9 fL (9.1-12.4); NEUTROPHILS ABSOLUTE AUTO 5.64 K/mm3 (1.96-9.15); NEUTROPHILS PERCENT AUTO 82 % (41-73); NRBC ABSOLUTE 0.47 K/mm3 (0.00-0.02); NRBC Auto 6.8 /100 WBC (0.0-0.2); Platelet Count 134 K/mm3 (150-400); RDW Coefficient Variation 16.5 % (11.7-14.2); RDW Standard Deviation 58.6 fL (35.1-46.3); Red Blood Cell Count 3.18 M/mm3 (4.30-5.90); White Blood Cell Count 6.92 K/mm3 (4.00-11.30)
[2021-10-29 04:51] LABS: Albumin, Blood 2.3 g/dL (3.4-5.0); Anion Gap 10 mmol/L (6-16); Blood Urea Nitrogen 68 mg/dL (8-24); Bun/Creatinine Ratio 44.7 (12.0-20.0); CO2, Blood 30 mmol/L (21-32); Chloride, Blood 101 mmol/L (98-108); Creatinine, Blood 1.52 mg/dL (0.60-1.20); Glomerular Filtration Rate 44 (60-); Glucose, Blood 122 mg/dL (70-99); Phosphorus, Blood 5.9 mg/dL (2.5-4.9); Potassium, Blood 4.2 mmol/L (3.5-5.5); Sodium, Blood 141 mmol/L (136-145)
--- NOTE | 2021-10-29 07:15 | NUR ---
SEHRMAN HAS BEEN SLEEPING ON AND OFF T/O THE NIGHT. HE USED HIS CALL LIGHT APPROPRIATELY, ASKING FOR PAIN MEDS NEEDED. HE STATED THAT HE NEEDS HIS OXYCODONE 10MG, HE TAKES IT EVERY DAY. HE WAS REMINDED THAT HE WAS IN THE HOSPITAL AND THAT HE WAS JUST RECENTLY TAKEN OFF THE VENTILATOR. HE CONTINUES TO EXPRESS HIS FRUSTRATION. HE CONTINUED WITH BP'S 140S/90'S TO LOW 100S DBP. HE WOULD HAVE MOMENTS OF CONFUSION AFTER THE DOSES OF DILAUDID, HE WOULD BE REORIENTABLE AND ADMIT THAT IT WAS MAKING HIM A "BIT GOOFY". HE CONTINUED ON THE 4L/NC T/O THE NIGHT WITH SATS >95%. HE CONTINUED ON THE PRECEDEX @ 0.7MCG PER KG/HR AND NS @ 10ML/HR. GOOD URINE OUTPUT.
[2021-10-29 08:54] LABS: Vancomycin, Trough 11.1 ug/mL (5.0-10.0)
--- NOTE | 2021-10-29 15:48 | NUR ---
TRANSFER TO ROOM 213 REPORT CALLED VIA PHONE. ALL QUESTIONS ANSWERED. PT AWAKE, ALERT, AND ORIENTED UPON TRANSFER TO SURGICAL FLOOR. ALL PT MEDICATIONS AND BELONGINGS SENT WITH PT.
--- NOTE | 2021-10-29 19:13 | NUR ---
SHIFT SUMMARY PT TRANSFERRED FROM ICU. PT IS SLIGHTLY CONFUSED AND IS PAINFUL. PAIN MEDICATION CHANGED FROM DILAUDID TO OXYCODONE. PT HAS WEEPING EDEMA T/O. WOUND VAC IN PLACE TO R LEG AMPUTATION SITE. MEDICATED WITH PRN HYDRALAZINE FOR HTN.
--- NOTE | 2021-10-29 19:56 | NUR ---
catheter care done with readycleanse wipes, pt tolerated well.
--- NOTE | 2021-10-30 01:21 | NUR ---
0030 HRS PT REPORTS INCREASED SOB. PT SPO2 REMAINS >90% W/ O2 @ 2LPM. PT HAD NOTICEABLE DECREASE IN RIGHT SIDE LUNG SOUNDS. DR. MCCLAIN CALLED AND ORDERED CXR AND BIPAP W/ CONTINOUS BIOX. PT REPORTS BREATHING BETTER W/ BIPAP. WCTM.
--- NOTE | 2021-10-30 03:53 | NUR ---
0200 HRS PT NOT TOLERATING BIPAP WELL. PT ALSO C/O CONTINUED DISCOMFORT. DR PEREA CALLED AND ORDERED FENTANYL AND PRN ATIVAN. WCTM
--- NOTE | 2021-10-30 05:31 | NUR ---
SUMMARY PT HAD INCREASED SOB WITH DECREASE IN RIGHT SIDE LS. HOSPITALIST CALLED AND ORDERED CXR AND BIPAP. PT ALSO HAD ISSUE WITH GETTING COMFORTABLE. DR MCCLAIN ORDERED FENTANYL WITH SOME INCREASE IN COMFORT. PT RESPONDED WELL TO BIPAP FOR PERIOD OF TIME, PT HAD DIFFICULTY KEEPING MASK ON. PT WAS ORDERED PO ATIVAN AND IS TOLERATING BIPAP BETTER. PT CURRENTLY SLEEPING AND BREATHING EASY ON BIPAP. CALL LIGHT IN REACH AND BED ALARM ON.
[2021-10-30 07:38] LABS: PCO2 Arterial 49.5 mmHg (35-45); PO2 Arterial 86.3 mmHg (80-100); pH Blood Arterial 7.44 (7.35-7.45)
--- NOTE | 2021-10-30 07:51 | NUR ---
PT TRANSFERRED TO PCU. PT HAS WHEEZES T/O AND LABORED BREATHING. PT IS ALSO DIAPHORETIC AND PALE. STAT BLOOD GAS DRAWN AND PT TRANSFERRED TO PCU 7. BEDSIDE REPORT GIVEN TO PALAK BALES.
--- NOTE | 2021-10-30 08:01 | NUR ---
ENTERED PT'S ROOM AT APPROX 0705, PT WAS GASPING FOR AIR AND STATED HE WAS STRUGGLING TO BREATH, CHEST SOUNDED VERY TIGHT AT THIS TIME. PLACED PATIENT BACK ON HIS BIPAP AND NOTIFIED RESPIRATORY THERAPY OF INCREASED RESPIRATORY EFFORT, SATS REMAINED 96% AT THIS TIME. CALLED DR. RIVAS AT APPROX 0710, ORDERS RECIEVED FOR TRANSFER TO PCU AND A STAT ABG. AGAIN NOTIFIED RESPIRATORY CARE, PRIMARY RN, AND NURSING HOTEL SECURITY OFFICER. RESPIRATORY CARE IN ROOM BY THIS POINT ALONG WITH PRIMARY RN.
--- NOTE | 2021-10-30 10:20 | NUR ---
Received report from charge nurse. Pt is resting in bed with his brother at the bedside. Pt is on Bipap @ 14/8 with sats @ 96% and RR 20. Pt is a/o x 4 and answers questions appropriately. He has a wound vac to his RLE and Dr Cheek is scheduled to come look at it some time today. Gamal is patent with yellow output with sediment. He is able to make his needs known and has his call light in reach.
--- NOTE | 2021-10-30 11:16 | NUR ---
Pt became anxious and agitated stating that he needed the Bipap mask off in order to have a BM. Pt was placed on the bed pena but was unsuccessful and he was switched over to his NC at his request with sats in the high 90's. He is being moved to room PCU 1 as it has a lift. His Brother Giorgio remains at the bedside.
--- NOTE | 2021-10-30 16:55 | NUR ---
SHIFT SUMMARY Pt continues to be agitated and confused. At times he will allow the BiPAP but then he pulls it off again along with his tele and BP cuff. He has reported several times that he does not want the oxygen on or anything else and wants to get up and go home. He says he needs to have a BM but does not want to get on the bed pena. His abdomen is distended and his bowel tones are hypoactive. His skin is very fragile and weeping on his arms and scrotum. We have pads under his extremeties that are being changed out to keep clean and his scrotum is elevated on pillow cases. Dr Cheek came by today to change his wound vac to his right AKA and that is still in place. He remains paced in a-fib in the 120's and when his agitattion increases so does his heart rate. His burch is patent. And even though he will not consistently leave the Bipap mask in place his sats remain in the low to mid 90's on RA. His PICC is not flushing and the PICC nurse did not administer the cath flow due to the placement of the PICC. A powerglide was just obtained this rogelio and we will discuss with the DR riojas or not to leave the PICC in place. His visited earlier but this seemed to agitate the pt even more and since her departure he has been even more worked up. The covering provider was called and gave orders as reflected on the EMAR. RT has been working with the pt and he has been getting breathing treatments. As of now he is resting in bed on room air with the bed alarm on and call light in reach, however he does not use the call light but yells out instead.
--- NOTE | 2021-10-30 17:21 | NUR ---
Called to see patient he is not wanting to wear bipap having more airhunger, anexiety and feelings of doom. More abdominal distention and scrotal swelling. Nursing updated physicians, updated icu as pt may need prcidex again. Maya recieved to melouris. Notified family of pt changing staus taked with brother , unable to reach . Will see how pt reaponds and how labs look. Advised family we may take another path if does not want further care and is suffering to much. they understand.
[2021-10-31 04:56] LABS: BASOPHILS ABSOLUTE AUTO 0.03 K/mm3 (0.00-0.23); BASOPHILS PERCENT AUTO 0 % (0-2); EOSINOPHILS ABSOLUTE AUTO 0.01 K/mm3 (0.00-0.68); EOSINOPHILS PERCENT AUTO 0 % (0-6); Hematocrit 34.9 % (37.0-53.0); Hemoglobin 10.8 g/dL (13.5-17.5); IMMATURE GRAN ABSOLUTE AUTO 0.31 K/mm3 (0.00-0.10); IMMATURE GRAN PERCENT AUTO 3 % (0-1); LYMPHOCYTES ABSOLUTE AUTO 0.63 K/mm3 (0.84-5.20); LYMPHOCYTES PERCENT AUTO 5 % (21-46); MONOCYTES ABSOLUTE AUTO 0.55 K/mm3 (0.16-1.47); MONOCYTES PERCENT AUTO 5 % (4-13); Mean Corpuscular HGB 31.7 pg (26.0-34.0); Mean Corpuscular HGB Conc 30.9 g/dL (31.5-36.5); Mean Corpuscular Volume 102 fL (80-100); Mean Platelet Volume 11.5 fL (9.1-12.4); NEUTROPHILS ABSOLUTE AUTO 10.03 K/mm3 (1.96-9.15); NEUTROPHILS PERCENT AUTO 87 % (41-73); NRBC ABSOLUTE 0.33 K/mm3 (0.00-0.02); NRBC Auto 2.9 /100 WBC (0.0-0.2); Platelet Count 262 K/mm3 (150-400); RDW Standard Deviation 64.4 fL (35.1-46.3); Red Blood Cell Count 3.41 M/mm3 (4.30-5.90); White Blood Cell Count 11.56 K/mm3 (4.00-11.30)
[2021-10-31 05:49] LABS: Anion Gap 5 mmol/L (6-16); Blood Urea Nitrogen 50 mg/dL (8-24); Bun/Creatinine Ratio 48.5 (12.0-20.0); CO2, Blood 36 mmol/L (21-32); Calcium, Blood 8.7 mg/dL (8.5-10.1); Chloride, Blood 105 mmol/L (98-108); Creatinine, Blood 1.03 mg/dL (0.60-1.20); Ferritin, Serum 239 ng/mL (26-388); Glomerular Filtration Rate >60 (60-); Glucose, Blood 115 mg/dL (70-99); Iron Serum 43 ug/dL (65-175); Percent Saturation 16.2 % (20.0-50.0); Potassium, Blood 4.3 mmol/L (3.5-5.5); Sodium, Blood 146 mmol/L (136-145); Total Iron Binding Capacity 265 ug/dL (250-450)
--- NOTE | 2021-10-31 05:55 | NUR ---
SHIFT SUMMARY ASSUMED CARE OF PT AT 1900. PT IS A/OX2. HE IS ABLE TO ANSWER ORIENTATION QUESTIONS ABOUT WHERE HE IS, WHY, AND WHO HE IS, BUT HE DONESNT KNOW THE DATE AND GETS CONFUSED. PT WAS PUT INTO RESTRAITNS BEUCASE HE WAS PULLONG OFF HIS WOUND VAC SAYING "ITS THE WRONG TAPE AND IM GOING TO BUY NEW TAPE". PT WAS NOT ABLE TO BE REDIRECTED AND TOLD THIS NURSE "I WILL HURT YOU IF YOU DO NOT LET ME TAKE THIS OFF". PT HEART SOUNDS ARE IRREGULAR, PT NEEDED LABATOLOL TO BRING DOWN HR AND BP BUT HE BECAME MORE AGITATED THEY INCREASED AGAIN. ONCE PT WAS PLACED IN RESTRAINTS HE CALMED DOWN AND HIS VITALS STABALIZED. PT IS BACK ON 2L NC DUE TO SATURATIONS IN THE 90S. PT HAS A PINEDA DRAINING WITH GRAVITY. URINE HAS LOTS OF SEDIMENT. PT ABD IS VERY DISTENDED AND FIRM AT THE START OF SHIFT BUT HAS PILAR SOFTENED. PT HAS NOT HAD A BM YET. PT HAS VARIES SKIN TEARS T/O HIS BODY, DRESSINGS CHANGED PRN. PT UPPER ARMS ARE WEEPING. WOUND VAC REENFORCED AFTER PT TORE OFF PART OF IT. CALL LIGHT IN REACH, BED ALARM ON.
--- NOTE | 2021-10-31 11:42 | NUR ---
UPDATE Pt is awake but not oriented and he is not responding verbally since the start of the shift. He is pale and his respirations are shallow. He is mouth breathing so the NC was moved to his mouth to help keep his sats above 90%. His arms continue to weep and are elevated on pillows. His family has been updated this morning. Palliative care is on board and spoke with the this morning and we are awaiting her arrival. He is calm this morning sometimes picking at things in the air that are not there but as of now he is not pulling at his lines. His wrist restraints were removed at the start of the shift this morning. His burch is still patent with yellow sediment urine output. The wound vac is CDI to his RLE. He appears comfortable.
--- NOTE | 2021-10-31 12:32 | NUR ---
UPDATE Pt's has arrived and has met with the palliative care RN. The has decided that they would like to go comfort care. The brother Giorgio has been updated and is very grateful for the care the pt is receiving here. The is at the bedside. A comfort tray has been ordered.
--- NOTE | 2021-10-31 12:48 | NUR ---
Multiple calls to family with updates on pt decline. came in review of physician assessment and proyed with her and discussed making him comfortable. Advised i spoke with ortho yesterday and intesivist who have provided most of his care to get prognosis. Pt kps score is 30%. May not tolerate transfer home. annot care for him. Will start treating his pain and airhunger and see how he progresses.
--- NOTE | 2021-10-31 16:03 | NUR ---
SHIFT SUMMARY Pt is resting comfotably in bed. He has been medicated per emar. The and other family member are at the bedside. At times the pt does have a furrowed brow but he remains nonverbal. His respirations are shallow. He is positioned on pillows.
--- NOTE | 2021-11-01 04:39 | NUR ---
EVVENT NOTE ASSUMED CARE OF PT AT 1900. PT IS LETHARGIC. FAMILY PRESENT IN ROOM. CONCEREND FOR PT PAIN AND REQUESTS PAIN MEDICATION HOURLY. PT FACE IS RELAXED, SKIN PALE AND RESPIRATIONS INCREASED. AT 0200 PT WAS MEDICATED PER REQUEST. PT RESPIRATIONS REMAINED INCREASED BUT PT LOOKED MORE MODELED. AT 0320 PT CALLS THIS NURSE INTO THE ROOM BECAUSE THE PT GASP AND NO LONGER WAS BREATHING. THIS NURSE AND NURSE NUNES VERIFIED PT AT 0320. AT BEDSIDE AND FAMILY TO FOLLOW. NOC HOSPITALIST NOTIFIED.
--- NOTE | 2021-11-01 05:28 | NUR ---
FINAL DISCHARGE PT LEFT FACILITY AT 0528 BY CLARISA GREENE. NO BELONGINGS IN ROOM. DOCUMENTATION SIGNED.
== END 2021-11-01 05:19 | DRG 853 ==
LOC: ER 15:54 → ICUW 22:06 → SURS 10-29 15:32 → PCU 10-30 08:00
PROVIDERS: Emergency Medicine; Family Medicine; Internal Medicine; Internal Medicine Critical Care Medicine; Orthopaedic Surgery; Pharmacist; ADMIT Internal Medicine
PROC: 3E043XZ Introduction of Vasopressor into Central Vein, Percutaneous Approach (ICD-10-PCS; 2021-10-23)
PROC: 3E03329 Introduction of Other Anti-infective into Peripheral Vein, Percutaneous Approach (ICD-10-PCS; 2021-10-24)
PROC: 02HV33Z Insertion of Infusion Device into Superior Vena Cava, Percutaneous Approach (ICD-10-PCS; 2021-10-24)
PROC: 0Y6C0Z2 Detachment at Right Upper Leg, Mid, Open Approach (ICD-10-PCS; principal; 2021-10-24 18:45)
PROC: 5A1945Z Respiratory Ventilation, 24-96 Consecutive Hours (ICD-10-PCS; 2021-10-25)
PROC: 5A09357 Assistance with Respiratory Ventilation, Less than 24 Consecutive Hours, Continuous Positive Airway Pressure (ICD-10-PCS; 2021-10-27)
DX: A41.53 Sepsis due to Serratia (principal); R65.21 Severe sepsis with septic shock; J96.01 Acute respiratory failure with hypoxia; G92.8 Other toxic encephalopathy; J96.02 Acute respiratory failure with hypercapnia; M72.6 Necrotizing fasciitis; L03.115 Cellulitis of right lower limb; N17.9 Acute kidney failure, unspecified; E87.1 Hypo-osmolality and hyponatremia; E87.4 Mixed disorder of acid-base balance; M62.82 Rhabdomyolysis; I48.20 Chronic atrial fibrillation, unspecified; Z66 Do not resuscitate; K21.9 Gastro-esophageal reflux disease without esophagitis; Z20.822 Contact with and (suspected) exposure to COVID-19; I25.10 Atherosclerotic heart disease of native coronary artery without angina pectoris; I10 Essential (primary) hypertension; E87.6 Hypokalemia; D86.9 Sarcoidosis, unspecified; M54.9 Dorsalgia, unspecified; Z98.890 Other specified postprocedural states; Z95.1 Presence of aortocoronary bypass graft; Z79.82 Long term (current) use of aspirin; Z79.899 Other long term (current) drug therapy; E83.42 Hypomagnesemia; G89.29 Other chronic pain; D64.9 Anemia, unspecified; D69.6 Thrombocytopenia, unspecified; Z90.49 Acquired absence of other specified parts of digestive tract; Z78.1 Physical restraint status
CPT/HCPCS: 0241U; 31720; 36415; 36569; 36600; 51702; 71045; 73600; 73700; 74018; 80048; 80053; 80069; 80202; 81001; 82550; 82553; 82728; 82803; 82947; 83540; 83550; 83605; 83735; 84100; 84132; 85025; 85027; 86140; 87040; 87077; 87086; 87186; 88307; 92526; 92610; 93005; 93010; 93306; 93971; 94002; 94003; 94640; 94660; 94664; 94760; 94762; 96374; 96375; 97110; 97162; 97166; 97530; 99285-25; A9270; C1751; C1769; C9113; J0360; J0690; J0696; J0780; J1170; J1644; J1650; J1720; J1815; J1940; J2060; J2185; J2250; J2405; J2704; J3010; J3370; J3475; J3480; J7030; J7050; J7060; J7120; P9046